=== PATIENT | male | born 1975 | race Caucasian/White ===

== ENCOUNTER 2020-07-11 18:38 | Emergency (ER) | payer SELFPAY ==
--- NOTE | 2020-07-11 18:54 | ECG_ITS ---
Test Reason : CHESTPAIN Blood Pressure : / mmHG Vent. Rate : 081 BPM Atrial Rate : 081 BPM P-R Int : 154 ms QRS Dur : 110 ms QT Int : 370 ms P-R-T Axes : 041 -29 010 degrees QTc Int : 429 ms Normal sinus rhythm with sinus arrhythmia Incomplete right bundle branch block Borderline ECG When compared with ECG of 23-APR-2019 17:43, No significant change was found Referred By: Generic ED Physician Electronically Signed By:SHAUNA PUENTES
[2020-07-11 18:58] VITALS: BP 182/92; PULSE 80; RESP 18; TEMP 37.2; O2SAT 96; BMI 39.3
== END 2020-07-12 00:59 | disposition left against medical advice (07) ==
LOC: HO.ED 07-12 00:25
PROVIDERS: Emergency Provider Emergency Medicine; PCP Internal Medicine
DX: R07.89 Other chest pain (principal)
CPT/HCPCS: 93005; 93010; 99282; 99283

== ENCOUNTER 2021-01-26 11:48 | Outpatient (REF) | payer BC, SELFPAY ==
[2021-01-26 14:19] LABS: Anion Gap 12 (12-20); Blood Urea Nitrogen 22 mg/dL (9-16); Calcium 10.1 mg/dL (8.4-10.2); Carbon Dioxide 30 mmol/L (22-29); Chloride 105 mmol/L (96-108); Cholesterol 218 mg/dL; Estimated Glomerular Filt Rate > 60; Glucose Random 95 mg/dL (60-115); HDL Cholesterol 46 mg/dL; LDL Cholesterol Calculated 122 mg/dl; Potassium 4.8 mmol/L (3.3-5.1); Sodium 142 mmol/L (135-145); Triglycerides 254 mg/dL
== END 2021-01-26 11:49 | disposition home or self-care (01) ==
LOC: HO.LAB 11:48
PROVIDERS: PCP Internal Medicine; Visit Provider Nurse Practitioner Family
DX: I42.8 Other cardiomyopathies (principal); I10 Essential (primary) hypertension; G47.30 Sleep apnea, unspecified; E11.9 Type 2 diabetes mellitus without complications
CPT/HCPCS: 36415; 80048; 80061; 93005

== ENCOUNTER → 2021-10-16 15:27 | Outpatient (BNVA) | payer BC, SELFPAY | PROVIDERS: PCP Internal Medicine; Referring Provider Internal Medicine; Visit Provider Physician Assistant ==

== ENCOUNTER → 2021-10-18 08:08 | Outpatient (BNVA) | payer BC, SELFPAY | PROVIDERS: PCP Internal Medicine; Visit Provider Surgery ==

== ENCOUNTER 2021-11-03 08:42 | Outpatient (REF) | payer BC, OTHER, SELFPAY ==
--- NOTE | ~2021-11-03 | XR_ITS ---
EXAMINATION: XR CHEST CLINICAL INFORMATION: Preprocedure COMPARISON: Previous chest x-ray April 2018 TECHNIQUE: 2 views of the chest were obtained. FINDINGS: No significant abnormality is noted involving the heart, lungs, mediastinum, bony thorax or soft tissues. XR/XR chest 2V IMPRESSION: Unremarkable examination.
--- NOTE | 2021-11-03 08:59 | ECG_ITS ---
Test Reason : preop Blood Pressure : / mmHG Vent. Rate : 074 BPM Atrial Rate : 074 BPM P-R Int : 154 ms QRS Dur : 100 ms QT Int : 390 ms P-R-T Axes : 045 -30 -03 degrees QTc Int : 432 ms Normal sinus rhythm Left axis deviation Incomplete right bundle branch block Abnormal ECG When compared with ECG of 11-JUL-2020 18:52, No significant change was found Referred By: Etelvina Thapa Electronically Signed By:TRAVIS MORAN MD
[2021-11-03 09:19] LABS: MANUAL DIFF FLAG NO
[2021-11-03 09:29] LABS: Basophils Percent Auto 0.4 % (0-2); Eosinophils Absolute Auto 0.1 X10*3/uL (0.0-0.4); Eosinophils Percent Auto 2.4 % (0-4); Hematocrit 44.8 % (42.0-52.0); Hemoglobin 14.5 g/dl (14.0-18.0); Imm Gran Abs Auto 0.01 X10*3/uL (0.00-0.03); Imm Gran Pct Auto 0.2 % (0.0-0.4); Lymphocytes Absolute Auto 1.6 X10*3/uL (1.2-4.9); Lymphocytes Percent Auto 31.7 % (20-40); Mean Corpuscular HGB Conc 32.4 g/dl (31.0-36.0); Mean Corpuscular Hemoglobin 27.7 pg (27.0-33.0); Mean Corpuscular Volume 85.7 fL (80.0-98.0); Mean Platelet Volume 9.5 fL (9.4-12.4); Monocytes Absolute Auto 0.4 X10*3/uL (0.1-1.2); Monocytes Percent Auto 7.7 % (2-11); Neutrophils Absolute Auto 2.9 x10*3/uL (2.0-8.3); Neutrophils Percent Auto 57.6 % (45-73); Platelet Count 236 X10*3/uL (160-400); Red Blood Count 5.23 X10*6/uL (4.60-5.80); Red Cell Distribution Width 13.2 % (11.0-16.0)
[2021-11-03 10:01] LABS: Estimated Average Glucose 128 mg/dL; Hemoglobin A1c % 6.1 %
[2021-11-03 10:23] LABS: Alanine Aminotransferase 96 U/L (0-40); Albumin Level 4.6 g/dL (3.5-5.0); Alkaline Phosphatase 42 U/L (39-117); Anion Gap 11 (12-20); Aspartate Amino Transferase 39 U/L (5-37); Bilirubin Total 1.3 mg/dL (0.0-1.0); Blood Urea Nitrogen 22 mg/dL (9-16); C Reactive Protein 0.56 mg/dL (< or = 0.50); Calcium 10.1 mg/dL (8.4-10.2); Carbon Dioxide 30 mmol/L (22-29); Chloride 104 mmol/L (96-108); Cholesterol 234 mg/dL; Estimated Glomerular Filt Rate > 60; Glucose Random 125 mg/dL (60-115); HDL Cholesterol 40 mg/dL; Iron 85 mcg/dL (45-160); LDL Cholesterol Calculated 165 mg/dl; Percent Iron Saturation 22 % (15-50); Potassium 4.4 mmol/L (3.3-5.1); Sodium 141 mmol/L (135-145); Total Iron Binding Capacity 381 mcg/dL (228-428); Total Protein 8.3 g/dL (6.5-8.0); Triglycerides 148 mg/dL; Unsaturated Iron Binding 296 ug/dL
[2021-11-03 10:46] LABS: Ferritin 268 ng/mL (20-250); Insulin 26 uU/mL (2-29)
[2021-11-03 11:11] LABS: Folate 13.9 ng/mL (> or = 4.0); Vitamin B12 306 pg/mL (200-900)
[2021-11-07 12:37] LABS: Calcium (PTHI) 10.2 mg/dL (8.6-10.3); PTHI 70 pg/mL (14-64)
[2021-11-07 13:01] LABS: Zinc 84 mcg/dL (60-130)
[2021-11-08 12:37] LABS: Vitamin A 57 mcg/dL (38-98)
[2021-11-08 16:51] LABS: Vitamin B1 11 nmol/L (8-30)
== END 2021-11-03 08:43 | disposition home or self-care (01) ==
LOC: HO.LAB 08:42
PROVIDERS: Absent Provider Internal Medicine; PCP Internal Medicine; Visit Provider Physician Assistant
DX: Z01.818 Encounter for other preprocedural examination (principal); E66.01 Morbid (severe) obesity due to excess calories; E11.9 Type 2 diabetes mellitus without complications; I10 Essential (primary) hypertension
CPT/HCPCS: 36415; 71046; 80053; 80061; 82306; 82607; 82728; 82746; 83036; 83525; 83540; 83970; 84425; 84443; 84590; 84630; 85025; 86140; 93005

== ENCOUNTER → 2022-01-24 09:44 | Outpatient (REF) | payer BC, OTHER, SELFPAY ==
--- NOTE | 2022-01-24 09:47 | CA_ITS ---
Transthoracic Echocardiogram Patient (Last, First, Middle): Willie Strong, Gender: Male Date of : 1975 Age: 46 Procedure Date: 01/24/2022 Procedure Type: Transthoracic Echocardiogram Location: OP Height: 182.88 cm Weight: 136.08 kg BSA: 2.53 m2 Heart Rate: bpm BP: 120 / 80 mmHg Core Drill Operator Helper: YR/TO Referring MD: Zoey Sotomayor MECHANICAL DESIGN TECHNICIANHenny Symptoms: I42.8 - Other cardiomyopathies Study Quality: Fair Conclusions: - 1. technically limited study 2. Normal LV systolic function with impaired relaxation filling pattern 3. Limited visualization of cardiac valves with normal cardiac valvular Doppler 4. Normal RV systolic pressure 5. No gross pericardial effusion Findings Left Ventricle Normal left ventricular size, thickness, and systolic function. The visually estimated ejection fraction is between 55-60%. Spectral Doppler is indicative of an impaired relaxation filling pattern. E/E prime ratio is between 8 and 15 consistent with indeterminate filling pressures. Right Ventricle Normal right ventricular cavity size. Atria The left atrium is normal in size. Interatrial shunt cannot be excluded. The right atrium was not well visualized. Aortic Valve The aortic valve was not well visualized. There is no aortic valve stenosis. There is no aortic valve regurgitation. Mitral Valve The mitral valve was not well visualized. There is trace mitral valve regurgitation. There is no mitral valve stenosis. Pulmonic Valve The pulmonic valve was not well visualized. Tricuspid Valve The tricuspid valve was not well visualized. There is trace tricuspid valve regurgitation. The right ventricular systolic pressure is normal. Normal right atrial pressure. There is no evidence of pulmonary hypertension. Great Vessels The aorta was not well visualized. The pulmonary artery was not well visualized. Venous The inferior vena cava is normal in size and collapses greater than 50% with inspiration. Pericardium/Pleural There is no evidence of pericardial effusion. Prior Study Comparison No significant change compared to prior study dated: 05/14/2019. Measurements 2D Linear Measurements IVSd: 1.12 0.6-0.9/0.6-1.0 cm LVIDd: 5.63 3.9-5.3/4.2-5.9 cm LVIDd Index: 2.23 2.4-3.2/2.2-3.1 cm/m2 LVIDs: 3.63 2.0-3.6 cm LVPWd: 1.12 0.7-1.1 cm LA Diam: 5.10 2.7-3.8/3.0-4.0 cm LAIDs Index: 2.02 1.5-2.3 cm/m2 LV Mass: 321.35 67-162/88-224 g LV Mass Index: 127.02 43-95/49-115 g/m2 LVOT Diam: 2.10 3.0+(-)1.3 cm 2D Systolic Function EF 4C: 58.30 >55% EF 2C: 60.10 >55% EF BiP: 60.00 >55% Mitral Valve MV Pk E: 0.69 MV PK A: 1.00 MV Decel Time: 237.00 E/A: 0.70 E'Lateral: 5.77 E'Medial: 6.85 E/E' Med: 10.00 E/E' Lat: 11.90 PHT: 70.00 MVA PHT: 3.14 Decel [place]: 2.89 Aortic Valve AoV Pk Shoaib: 1.68 AoV Mn Shoaib: 1.15 AoV VTI: 0.32 AoV Pk Grad: 11.00 Aov Mn Grad: 6.00 LISA Cont.VTI: 2.19 LVOT LVOT Pk Shoaib: 1.00 LVOT Mn Shoaib: 0.68 LVOT VTI: 0.20 LVOT Pk Grad: 4.00 LVOT Mn Grad: 2.00 LVOT Diam: 2.10 LVOT Area: 3.46 Diastolic Function MV Pk E: 0.69 MV Pk A: 1.00 E/A: 0.70 E'Medial: 6.85 E/E' Med: 10.00 E' Laterial: 5.77 E/E' Lat: 11.90 Right Ventricle TAPSE (mm): 32.10 TVS' Shoaib: 14.90 Tricuspid Valve TR Pk Shoaib: 2.08 TR Pk Grad: 17.00 RA Press: 8.00 RVSP: 25.00 Great Vessels Aorta Sinus of Valsalva: 3.37 2.0-3.[address] [place]: 2.96 1.7-3.4 cm Ao Asc: 3.50 2.1-3.4 cm Ao Arch: 2.80 Updated in Other Vendor System with Status of Final Hector Simon MD electronically signed on 01/24/2022 12:53:08 PM with status of Final
== END ==
LOC: HO.CARD 09:44
PROVIDERS: PCP Internal Medicine; Visit Provider Nurse Practitioner Family
DX: I10 Essential (primary) hypertension (principal); I42.8 Other cardiomyopathies
CPT/HCPCS: 93306

== ENCOUNTER → 2022-01-29 10:42 | Outpatient (BNVA) | payer BC, OTHER, SELFPAY | PROVIDERS: PCP Internal Medicine; Referring Provider Internal Medicine; Visit Provider Internal Medicine Cardiovascular Disease | DX: I42.8 Other cardiomyopathies (principal) | CPT/HCPCS: 93005 ==

== ENCOUNTER 2022-07-08 10:17 | Emergency (ER) | payer OTHER, SELFPAY ==
--- NOTE | ~2022-07-08 | US_ITS ---
EXAMINATION: US VENOUS ULTRASOUND WITH DOPPLER LOWER EXTREMITY, LEFT CLINICAL INFORMATION: Pain COMPARISON: None TECHNIQUE: Ultrasound of the deep veins is performed from the hip to the calf with compression sonography and color and pulse Doppler assessment. Spectral analysis with color-flow imaging is performed. FINDINGS: There is normal venous compression and respiratory variation and augmented flow. The visualized common femoral vein, superficial femoral vein, profunda femoral vein, popliteal vein, and the trifurcation region shows no evidence of deep venous thrombosis. There is no popliteal fossa cyst. US/US venous duplex LE LT IMPRESSION: No DVT demonstrated in the left lower extremity.
[2022-07-08 10:28] VITALS: BP 139/80; PULSE 75; RESP 18; TEMP 36.6; O2SAT 98; BMI 40.6
[2022-07-08 10:54] VITALS: BP 128/79; PULSE 72; RESP 14; TEMP 36.6; O2SAT 98
--- NOTE | 2022-07-08 10:54 | ED_ITS ---
HPI - General Adult General Chief complaint: General Medical Stated complaint: pain in calf Time Seen by Provider: 07/08/22 10:54 History of Present Illness HPI narrative: 46 years old presents today with having pain to the left calf area. Has a history of diabetes history of nonischemic cardiomyopathy. Patient larger in size. No history of blood clots. No history of pulmonary embolism. No travel history. Patient from home. No history of similar symptoms in the past. Patient initially had the calf dense migrated to having some tingling sensation in the hands. Patient denies any difficulty with speech. Denies any difficulty with movement. Ambulates with a normal gait. There is no chest pain or shortness of breath no diaphoresis. Patient has been on the same medications. Related Data Home Medications Medication Instructions Recorded Confirmed atorvastatin 10 mg tablet 10 mg PO DAILY 01/29/22 01/29/22 lisinopril 20 1 tab PO DAILY 01/29/22 01/29/22 mg-hydrochlorothiazide 12.5 mg tablet metoprolol succinate 25 mg 25 mg PO DAILY 01/29/22 01/29/22 tablet,extended release 24 hr Allergies Allergy/AdvReac Type Severity Reaction Status Date / Time shrimp [SHRIMP] Allergy Intermediate ANGIOEDEMA Verified 01/29/22 11:03 Review of Systems Review of Systems: Positive pain to the left calf Yes all other systems are reviewed and are negative PMFSH Past Medical History Attestation statement: The following information was validated with the patient. Medical History Cardiac arrhythmia Diabetes mellitus, type 2 Hypertension Morbid obesity Myocardial infarction Nonischemic cardiomyopathy Sleep apnea Surgical History History of cardiac catheterization Hx of appendectomy Family History Family History Father No problems noted. Mother Diabetes Sister No problems noted. Son No problems noted. Daughter No problems noted. Social History Social History Alcohol intake: current Alcohol intake frequency: holidays/special occasions only Patient Tobacco Use Status: Never used Tobacco Advance Directives: No Advance Directives Information Provided: No Physical Exam ED Vital Signs: Vital Signs - 24 hr 07/08/22 10:28 07/08/22 10:54 07/08/22 12:50 Temperature 97.9 F 97.8 F 97.9 F Pulse Rate 75 72 65 Respiratory Rate 18 14 14 Blood Pressure 139/80 128/79 124/72 Pulse Oximetry 98 98 98 Oxygen Delivery Method Room Air Room Air BMI result Body Mass Index 40.6 Appearance: Alert. Oriented X3. No acute distress. Eyes: Pupils equal, round and reactive to light. ENT: Pharynx normal. Neck: Normal inspection. Neck supple. No lymph nodes noted. No crepitus CVS: Normal heart rate and rhythm. Pulses normal. Normal S1 and S2 Respiratory: No respiratory distress. Breath sounds normal. No Wheezing. No rales Abdomen: Soft and nontender. No rigidity. No distention. good BS x4 Skin: Skin warm and dry. Normal skin color. Normal skin turgor. Extremities: No lower extremity edema. Neurovascular intact to all extremities. No Lacerations. No Rash. There is no calf tenderness elicited on palpation. Calf size equal at 10 cm below the tibial tuberosity. Neuro: Oriented X 3. No motor deficit. No sensory deficit. Moving all extermities. No slurred speech Medical Decision Making MDM Narrative Medical decision making narrative: Doppler of the leg was grossly negative. Electrolytes unremarkable. Patient neurologically intact. Will discharge patient home. EKG unchanged from previous. Patient is in stable condition. Lab Data Lab results reviewed: Yes I reviewed the patient's lab results. Result diagrams: 07/08/22 11:24 07/08/22 11:24 Labs: Lab Results 07/08/22 07/08/22 07/08/22 Range/Units 11:24 11:24 11:24 WBC 5.1 (4.8-10.8) X10*3/uL RBC 5.07 (4.60-5.80) X10*6/uL Hgb 13.9 L (14.0-18.0) g/dl Hct 43.0 (42.0-52.0) % MCV 84.8 (80.0-98.0) fL MCH 27.4 (27.0-33.0) pg MCHC 32.3 (31.0-36.0) g/dl RDW 13.2 (11.0-16.0) % Plt Count 196 (160-400) X10*3/uL MPV 9.1 L (9.4-12.4) fL Immature Gran % (Auto) 0.2 (0.0-0.4) % Neut % (Auto) 61.8 (45-73) % Lymph % (Auto) 28.4 (20-40) % [place] % (Auto) 6.5 (2-11) % Eos % (Auto) 2.7 (0-4) % Baso % (Auto) 0.4 (0-2) % Lymph # (Auto) 1.5 (1.2-4.9) X10*3/uL [place] # (Auto) 0.3 (0.1-1.2) X10*3/uL Eos # (Auto) 0.1 (0.0-0.4) X10*3/uL Baso # (Auto) 0.0 (0.0-0.2) X10*3/uL Abs Immat Gran (auto) 0.01 (0.00-0.03) X10*3/uL Absolute Neuts (auto) 3.2 (2.0-8.3) x10*3/uL Absolute Nucleated RBC 0.000 (0.0-0.012) X10*3/uL Nucleated RBC % (auto) 0.0 (0.0-0.2) /100WBC Sodium 140 (135-145) mmol/L Potassium 4.4 (3.3-5.1) mmol/L Chloride 100 (96-108) mmol/L Carbon Dioxide 30 H (22-29) mmol/L Anion Gap 14 (12-20) BUN 19 H (9-16) mg/dL Creatinine 1.03 (0.5-1.4) mg/dL Estim Creat Clear Calc 128.0 Estimated GFR > 60 Random Glucose 138 H (60-115) mg/dL Calcium 9.7 (8.4-10.2) mg/dL Magnesium 2.1 (1.6-2.6) mg/dL Troponin I High Sens < 3.5 (<3.5-35.0) ng/L ECG Data Attestation: I personally reviewed and interpreted this ECG as follows: Prior ECG tracings: available for review Discharge Plan Discharge Clinical Impression: Cramp in lower leg Patient Disposition: Home, Self-Care Instructions: Leg Cramps (ED) Prescriptions: No Action lisinopril-hydrochlorothiazide 20-12.5 mg tablet 1 tab PO DAILY metoprolol succinate 25 mg tablet extended release 24 hr 25 mg PO DAILY atorvastatin 10 mg tablet 10 mg PO DAILY Referrals: Cedrick Linton MD [Primary Care Provider] -
--- NOTE | 2022-07-08 10:55 | ECG_ITS ---
Test Reason : WEAKNESS Blood Pressure : / mmHG Vent. Rate : 071 BPM Atrial Rate : 071 BPM P-R Int : 174 ms QRS Dur : 112 ms QT Int : 384 ms P-R-T Axes : 048 -33 -04 degrees QTc Int : 417 ms Normal sinus rhythm Left axis deviation Incomplete right bundle branch block Abnormal ECG When compared with ECG of 03-NOV-2021 09:01, No significant change was found Referred By: Melani Burch Electronically Signed By:SHAUNA PUENTES
--- NOTE | 2022-07-08 11:15 | PC.NURSE ---
pt a&o x4, c/o left calf pain and feeling zonked out . Neuros intact, RYAN strength noted to all four extremities, skin PWD. Left calm without redness, swelling or warmth
[2022-07-08 11:30] LABS: MANUAL DIFF FLAG NO
[2022-07-08 11:31] LABS: Basophils Percent Auto 0.4 % (0-2); Eosinophils Absolute Auto 0.1 X10*3/uL (0.0-0.4); Eosinophils Percent Auto 2.7 % (0-4); Hemoglobin 13.9 g/dl (14.0-18.0); Imm Gran Abs Auto 0.01 X10*3/uL (0.00-0.03); Imm Gran Pct Auto 0.2 % (0.0-0.4); Lymphocytes Absolute Auto 1.5 X10*3/uL (1.2-4.9); Lymphocytes Percent Auto 28.4 % (20-40); Mean Corpuscular HGB Conc 32.3 g/dl (31.0-36.0); Mean Corpuscular Hemoglobin 27.4 pg (27.0-33.0); Mean Corpuscular Volume 84.8 fL (80.0-98.0); Mean Platelet Volume 9.1 fL (9.4-12.4); Monocytes Absolute Auto 0.3 X10*3/uL (0.1-1.2); Monocytes Percent Auto 6.5 % (2-11); Neutrophils Absolute Auto 3.2 x10*3/uL (2.0-8.3); Neutrophils Percent Auto 61.8 % (45-73); Platelet Count 196 X10*3/uL (160-400); Red Blood Count 5.07 X10*6/uL (4.60-5.80); Red Cell Distribution Width 13.2 % (11.0-16.0); White Blood Count 5.1 X10*3/uL (4.8-10.8)
[2022-07-08 11:46] LABS: Anion Gap 14 (12-20); Blood Urea Nitrogen 19 mg/dL (9-16); Calcium 9.7 mg/dL (8.4-10.2); Carbon Dioxide 30 mmol/L (22-29); Chloride 100 mmol/L (96-108); Estimated Glomerular Filt Rate > 60; Glucose Random 138 mg/dL (60-115); Magnesium 2.1 mg/dL (1.6-2.6); Potassium 4.4 mmol/L (3.3-5.1); Sodium 140 mmol/L (135-145)
[2022-07-08 11:53] LABS: Troponin-I High Sensitivity < 3.5 ng/L (<3.5-35.0)
[2022-07-08 12:50] VITALS: BP 124/72; PULSE 65; RESP 14; TEMP 36.6; O2SAT 98
[2022-07-11 16:36] LABS: Calcium, Ionized 4.9 mg/dL (4.8-5.6)
== END 2022-07-08 13:16 | disposition home or self-care (01) ==
PROVIDERS: Emergency Provider Emergency Medicine Emergency Medical Services; PCP Internal Medicine
DX: R25.2 Cramp and spasm (principal); M79.662 Pain in left lower leg; R60.0 Localized edema; Z79.899 Other long term (current) drug therapy
CPT/HCPCS: 36415; 80048; 82330; 83735; 84484; 85025; 93005; 93971; 99284

== ENCOUNTER → 2023-01-31 10:33 | Outpatient (BNVA) | payer BC, SELFPAY | PROVIDERS: PCP Internal Medicine; Referring Provider Internal Medicine; Visit Provider Internal Medicine Cardiovascular Disease | DX: I42.8 Other cardiomyopathies (principal); I10 Essential (primary) hypertension | CPT/HCPCS: 93005 ==

== ENCOUNTER 2024-02-04 10:58 | Outpatient (AMB) | payer MEDICAID, SELFPAY ==
--- NOTE | 2024-02-04 11:02 | A.OFFVIS_ITS ---
Vital Signs 02/04/24 11:03 Height 6 ft Weight 308 lb 10.354 oz BMI 41.9 BP 128/80 Blood Pressure Location Lt brachial Position Sitting Pulse 78 Intake Visit Reasons: 1 year follow-up with ekg Intake Note: 1 year follow-up with ekg feeling good did go to [facility] 2 months ago dx TIA Functional Manager Required: No Allergies shrimp [SHRIMP] Allergy (Intermediate, Verified 01/31/23 10:56) ANGIOEDEMA Medication List - Last Reconciled 02/04/24 by Hector Simon MD atorvastatin 40 mg PO QAM lisinopril-hydrochlorothiazide 20-12.5 mg 1 tab PO DAILY metoprolol succinate ER 25 mg PO DAILY HPI Comments Details: Willie comes for follow-up. Recently about couple months ago he was at [facility] because he had developed left-sided facial numbness along with left arm numbness. He subsequently had extensive workup at [facility], do not have the copy of the records. He said he had extensive MRIs, CT scan including echocardiogram. Everything as per him was reported as normal. He was told that he had TIA. Subsequently had couple more episodes. He comes here for follow- up. He has currently not on aspirin therapy for unclear reasons. He is taking all his medications. He says blood pressures been well optimized. His sugars have been also well controlled. He is since the diagnose been eating better and lost about 30 lb. He said he feels more energy. He is using his CPAP. Denies any lightheadedness, syncope. [facility] Medical History Morbid obesity Nonischemic cardiomyopathy Diabetes mellitus, type 2 Sleep apnea Cardiac arrhythmia Myocardial infarction Hypertension Surgical History History of cardiac catheterization Hx of appendectomy Family History Father No problems noted. Mother Diabetes Sister No problems noted. Son No problems noted. Daughter No problems noted. Social History Alcohol intake: current Alcohol intake frequency: holidays/special occasions only Patient Tobacco Use Status: Never used Tobacco Review of Systems Const Denies chills, Denies fatigue, Denies fever(s), Denies frequent falls, Denies weakness, Denies weight gain and Denies weight loss ENT Denies dizziness Card Denies chest pain, Denies leg edema, Denies lightheadedness, Denies palpitations, Denies dyspnea, Denies dyspnea on exertion, Denies orthopnea and Denies other (loss of consciousness) Resp Denies cough, Denies dyspnea and Denies dyspnea on exertion GI Denies hematochezia and Denies change in stool character Musc Denies abnormal gait, Denies muscle weakness, Denies numbness, Denies radiating pain into limb and Denies tingling Neuro Denies abnormal gait, Denies dizziness, Denies frequent falls, Denies numbness, Denies tingling and Denies weakness Endo Denies fatigue and Denies palpitations Physical Exam Vital Signs: Last Vital Signs Pulse 78 02/04/24 11:03 BP 128/80 02/04/24 11:03 BMI result Body Mass Index 41.9 Const General: cooperative, comfortable and no acute distress Orientation/consciousness: patient oriented x3 Neck Neck: Yes normal visual inspection and Yes no JVD Carotids: normal carotid upstroke Resp Effort & Inspection: normal respiratory effort Auscultation: clear to auscultation bilaterally, no crackles, no rales, no rhonchi and no wheezes Cardio Jugular venous distension: no JVD Rate: regular rate Rhythm: regular rhythm Heart sounds: S1 normal heart sound present, S2 normal heart sound present, no gallops, no murmurs and no rubs Peripheral pulses: Peripheral pulses 2+ throughout GI Inspection: Yes normal to inspection Neuro General: patient oriented x3 Extrem General: Yes normal to inspection, No no pedal edema and No calf tenderness Office Procedures EKG Details: EKG shows normal sinus rhythm with left axis deviation with incomplete right bundle-branch block at 78 beats per minute [id number], Complete Assessment & Plan Assessment & Plan (1) TIA (transient ischemic attack): Code(s): G45.9 - Transient cerebral ischemic attack, unspecified Plan: Recent symptoms suggestive of TIA was diagnose with TIA. There were no findings of embolic CVA on the imaging as per him. I would like to look at although results and make sure he is any vascular disease. He should at least be on aspirin therapy. He is at risk for atrial fibrillation. Will suggest a event monitor to evaluate for the same. Continue aggressive risk factor modification high-intensity statin therapy. Target goal LDL less than 70 mg/dL. He is encouraged to continue to participate in heart healthy lifestyle with aggressive blood pressure control, avoidance of diabetes continue rate control. He is encouraged to continue to participate in physical activity. (2) Nonischemic cardiomyopathy: Code(s): I42.8 - Other cardiomyopathies Category: Medical Plan: Prior history of nonischemic cardiomyopathy. Last echocardiogram here had shown normal LV ejection fraction. He had a recent echocardiogram at [facility]. Will follow-up on that. Continue neurohormonal modulation with lisinopril and metoprolol which has helped. Continue CPAP therapy. Continue participate in physical activity and weight loss program. Goal blood pressure less than 130/84. Will follow up in the clinic in 1 year's time, sooner p.r.n.. Thank you for allowing me to partake in his care Orders: Orders ECG 30 day event monitor Today Coding Level of Care Code Est Pt Level 4 (01102) Diagnoses TIA (transient ischemic attack) G45.9 Nonischemic cardiomyopathy I42.8 CPT Codes EKG - CPT: 54531-[id number], Complete ([id number])
[2024-02-04 11:03] VITALS: BP 128/80; PULSE 78; BMI 41.9
== END 2024-02-04 11:37 | disposition home or self-care (01) ==
PROVIDERS: PCP Internal Medicine; Referring Provider Internal Medicine; Visit Provider Internal Medicine Cardiovascular Disease
DX: G45.9 Transient cerebral ischemic attack, unspecified (principal); I42.8 Other cardiomyopathies
CPT/HCPCS: 93010; 99214

== ENCOUNTER → 2024-02-04 10:58 | Outpatient (BNVA) | payer MEDICAID, SELFPAY | PROVIDERS: PCP Internal Medicine; Visit Provider Internal Medicine Cardiovascular Disease | DX: M71.322 Other bursal cyst, left elbow (principal); I42.8 Other cardiomyopathies; Z86.73 Personal history of transient ischemic attack (TIA), and cerebral infarction without residual deficits; Z79.899 Other long term (current) drug therapy | CPT/HCPCS: 93005; 99202; 99212 ==

== ENCOUNTER 2024-02-04 13:33 | Outpatient (AMB) | payer MEDICAID, SELFPAY ==
--- NOTE | 2024-02-04 13:37 | A.OFFVIS_ITS ---
Intake Visit Reasons: Subcutaneous nodule Intake Note: Patient is seen in office for evaluation and treatment of subcutaneous nodule. Pt c/o: lump above the elbow for the past 2 yrs, painful, denies increase/decrease, redness or discharge Machine Lead Burner Required: No Accompanied by: Self / Same As Patient Allergies shrimp [SHRIMP] Allergy (Intermediate, Verified 02/04/24 13:38) ANGIOEDEMA Medication List - Last Reconciled 02/04/24 by Len Vargas MD atorvastatin 40 mg PO QAM lisinopril-hydrochlorothiazide 20-12.5 mg 1 tab PO DAILY metoprolol succinate ER 25 mg PO DAILY HPI Comments Details: 48-year-old male patient presenting for palpable mass in the left elbow. He is uncertain how long this has been present but notes increased pain associated with using the left arm. The lump is noted to move around when palpated. He denies a history of trauma or other injury to the left arm. He denies skin redness or discharge. [facility] Medical History Morbid obesity Nonischemic cardiomyopathy Diabetes mellitus, type 2 Sleep apnea Cardiac arrhythmia Myocardial infarction Hypertension Surgical History History of cardiac catheterization Hx of appendectomy Family History Father No problems noted. Mother Diabetes Sister No problems noted. Son No problems noted. Daughter No problems noted. Social History Alcohol intake: current Alcohol intake frequency: holidays/special occasions only Patient Tobacco Use Status: Never used Tobacco Review of Systems Const All systems reviewed & are unremarkable except as noted in HPI and below Denies chills, Denies fever(s), Denies headache(s), Denies poor appetite and Denies weakness ENT Denies headache(s) Card Denies chest pain, Denies irregular heart rhythm, Denies palpitations and Denies dyspnea Resp Denies cough, Denies excessive phlegm production and Denies dyspnea GI Denies abdominal pain, Denies bloating, Denies change in bowel habits, Denies constipation, Denies heartburn, Denies diarrhea, Denies nausea and Denies vomiting Denies difficulty urinating and Denies urinary frequency Musc Denies back pain, Denies muscle weakness and Denies numbness Skin/Breast Denies changing lesions and Denies unusual bruising Neuro Denies headache(s), Denies numbness, Denies paresthesias and Denies weakness Psych Denies anxiety and Denies depression Endo Denies palpitations [place]/Lymph Denies lymphadenopathy Physical Exam Const General: cooperative and no acute distress Nutritional Appearance: well nourished Orientation/consciousness: patient oriented x3 Limitations: no limitations HEENT Head: Yes normocephalic and Yes atraumatic Ears: hearing grossly normal bilaterally Resp Effort & Inspection: normal respiratory effort, no audible wheezes, no cough and no respiratory distress Cardio Jugular venous distension: no JVD GI Inspection: Yes normal to inspection Skin Other: Warm, dry, no rash Neuro General: patient oriented x3 Extrem Other: Left elbow with a palpable subcutaneous nodule medially which seems to move with motion of the elbow. General: Yes no clubbing, cyanosis or edema Elbow/forearm/wrist images: 2 1. Site of palpable nodule in posterior medial left elbow. Findings consistent with possible synovial cyst within the subcutaneous tissue. Assessment & Plan Assessment & Plan (1) Synovial cyst of elbow: Code(s): M71.329 - Other bursal cyst, unspecified elbow Category: Medical Plan Patient appears to have a deep mobile cyst within the left elbow suggestive of a synovial cyst. I recommended further workup with an ultrasound. If this is need a synovial cyst referral to orthopedics will be recommended. On the other hand if this is a solitary cyst within the subcutaneous tissue, arrangements will be made for excision. The patient expressed understanding and agrees with the plan. Orders: Orders 2 US extremity nonvascular merino Today M71.329 - Other bursal cyst, unspecified elbow Coding Level of Care Code New Pt Level 4 (00384) Diagnoses Synovial cyst of elbow M71.329
== END 2024-02-04 13:42 | disposition home or self-care (01) ==
PROVIDERS: PCP Internal Medicine; Referring Provider Internal Medicine; Visit Provider Surgery
DX: M71.329 Other bursal cyst, unspecified elbow (principal)
CPT/HCPCS: 99204

== ENCOUNTER 2024-02-20 13:03 | Outpatient (REF) | payer MEDICAID, SELFPAY ==
--- NOTE | ~2024-02-20 | US_ITS ---
EXAMINATION: ULTRASOUND LEFT ARM CLINICAL INFORMATION: Palpable mass left medial elbow. COMPARISON: None available. TECHNIQUE: High-frequency linear ultrasound transducer was used to examine the area of clinical concern. FINDINGS: No abnormality is seen. No mass, joint effusion, fluid collection or shadowing calcifications are seen. US/US extremity nonvascular merino IMPRESSION: No abnormality is seen.
== END 2024-02-20 13:04 | disposition home or self-care (01) ==
LOC: HO.US 13:03
PROVIDERS: PCP Internal Medicine; Visit Provider Surgery
DX: M71.329 Other bursal cyst, unspecified elbow (principal)
CPT/HCPCS: 76882

== ENCOUNTER → 2024-02-28 10:46 | Outpatient (REF) | payer MEDICAID, SELFPAY ==
--- NOTE | 2024-02-28 10:49 | HM_ITS ---
Cardiac event monitor Indication: TIA Technique: Patient was hooked up to cardiac event monitor on 02/28/2024 for total period of 30 days. The wear time was about 21.7 days consistent with compliance of 72%. Findings: Baseline was normal sinus rhythm with minimum heart rate of 67 beats per minute and maximum heart rate of 138 beats per minute. There were no significant pauses noted. The no significant episodes of atrial fibrillation noted. One episode of nonsustained VT noted, lasting 6 beats. The EKG tracings were overall of low quality due to low voltage with occasional episodes of artifacts. No patient reported events. Conclusion: 1. Baseline was normal sinus rhythm with no pauses 2. No episodes of atrial fibrillation 3. One episode of nonsustained VT at 6 beats 4. No patient reported events MTDD
== END ==
LOC: HO.CARD 10:46
PROVIDERS: PCP Internal Medicine; Visit Provider Internal Medicine Cardiovascular Disease
DX: G45.9 Transient cerebral ischemic attack, unspecified (principal); I42.8 Other cardiomyopathies
CPT/HCPCS: 93270

== ENCOUNTER → 2024-02-28 10:49 | Outpatient (BNV) | payer MEDICAID, SELFPAY | PROVIDERS: PCP Internal Medicine; Visit Provider Internal Medicine Cardiovascular Disease | DX: R00.0 Tachycardia, unspecified (principal) | CPT/HCPCS: 93272 ==

== ENCOUNTER 2024-07-02 10:15 | Outpatient (REF) | payer MEDICAID, SELFPAY ==
[2024-07-02 14:41] LABS: Cholesterol 132 mg/dL (<200); HDL Cholesterol 43 mg/dL (>40); LDL Cholesterol Calculated 67 mg/dL (<100); Triglycerides 111 mg/dL (<150)
[2024-07-02 20:50] LABS: Creatinine Urine 202.78 mg/dL; Microalbum/Creatinine Ratio Ur 3.9 ug/mg cr (<30)
[2024-07-03 04:13] LABS: ~HepC Num1 0.12 S/CO (0.00-0.79); ~Hepatitis C Antibody Nonreactive (Nonreactive)
== END 2024-07-02 10:16 | disposition home or self-care (01) ==
LOC: HO.CHCLDS 10:15
PROVIDERS: Visit Provider Internal Medicine
DX: E11.65 Type 2 diabetes mellitus with hyperglycemia (principal)
CPT/HCPCS: 36415; 80061; 82043; 82570; 86803

== ENCOUNTER 2025-02-02 09:44 | Outpatient (AMB) | payer MEDICAID, SELFPAY ==
--- NOTE | 2025-02-02 10:15 | A.OFFVIS_ITS ---
Vital Signs 02/02/25 10:16 Height 6 ft Weight 288 lb 12.889 oz BMI 39.2 BP 130/76 Blood Pressure Location Lt brachial Position Sitting Pulse 70 Intake Visit Reasons: 1 yr f/up Intake Note: 1 year follow-up with ekg feeling good Assistant Merchandise Manager Required: No Allergies shrimp [SHRIMP] Allergy (Intermediate, Verified 02/04/24 13:38) ANGIOEDEMA Medication List - Last Reconciled 02/02/25 by Hector Simon MD atorvastatin 40 mg PO QAM lisinopril-hydrochlorothiazide 20-12.5 mg 1 tab PO DAILY metoprolol succinate ER 25 mg PO DAILY tirzepatide (Mounjaro) 2.5 mg subcut QWEEK HPI Comments Details: Willie comes for cardiology follow-up. He has been doing very well from cardiac perspective. He has been trying to lose weight with GLP to antagonist has been doing well although he was had some insurance issues. Recently started on Mounjaro. He has not started any cardiac symptoms. Denies any worsening shortness of breath, orthopnea, PND. No exertional chest pain. He says since treating his hyperlipidemia his symptoms he was getting last year have improved. He denies any lightheadedness, syncope. He uses his CPAP regularly. [facility] Medical History Morbid obesity Nonischemic cardiomyopathy Diabetes mellitus, type 2 Sleep apnea Cardiac arrhythmia Myocardial infarction Hypertension Surgical History History of cardiac catheterization Hx of appendectomy Family History Father No problems noted. Mother Diabetes Sister No problems noted. Son No problems noted. Daughter No problems noted. Social History Alcohol intake: current Alcohol intake frequency: holidays/special occasions only Patient Tobacco Use Status: Never used Tobacco Review of Systems Const Denies chills, Denies fatigue, Denies fever(s), Denies frequent falls, Denies weakness, Denies weight gain and Denies weight loss ENT Denies dizziness Card Denies chest pain, Denies leg edema, Denies lightheadedness, Denies palpitations, Denies dyspnea, Denies dyspnea on exertion, Denies orthopnea and Denies other (loss of consciousness) Resp Denies cough, Denies dyspnea and Denies dyspnea on exertion GI Denies hematochezia and Denies change in stool character Musc Denies abnormal gait, Denies muscle weakness, Denies numbness, Denies radiating pain into limb and Denies tingling Neuro Denies abnormal gait, Denies dizziness, Denies frequent falls, Denies numbness, Denies tingling and Denies weakness Endo Denies fatigue and Denies palpitations Physical Exam Vital Signs: Last Vital Signs Pulse 70 02/02/25 10:16 BP 130/76 02/02/25 10:16 BMI result Body Mass Index 39.2 Const General: cooperative, comfortable and no acute distress Orientation/consciousness: patient oriented x3 Neck Neck: Yes normal visual inspection and Yes no JVD Carotids: normal carotid upstroke Resp Effort & Inspection: normal respiratory effort Auscultation: clear to auscultation bilaterally, no crackles, no rales, no rhonchi and no wheezes Cardio Jugular venous distension: no JVD Rate: regular rate Rhythm: regular rhythm Heart sounds: S1 normal heart sound present, S2 normal heart sound present, no gallops, no murmurs and no rubs Peripheral pulses: Peripheral pulses 2+ throughout GI Inspection: Yes normal to inspection Neuro General: patient oriented x3 Extrem General: Yes normal to inspection, No no pedal edema and No calf tenderness Office Procedures EKG Details: EKG shows normal sinus rhythm with incomplete right bundle-branch block at 70 beats per minute otherwise no significant abnormality. [id number], Complete Assessment & Plan Assessment & Plan (1) Nonischemic cardiomyopathy: Code(s): I42.8 - Other cardiomyopathies Category: Medical Plan: Nonischemic cardiomyopathy in this middle-aged man without any cardiac symptoms. Currently on neurohormonal modulation with lisinopril and metoprolol. He has done well with last echocardiogram done few years ago showing normalized LV ejection fraction. Advised to continue metoprolol and lisinopril for blood pressure control as well as neurohormonal modulation. Blood pressure is currently well optimized. He is encouraged to continue to participate in aggressive weight loss program which will help his overall cardiometabolic risk and development of heart failure syndrome. At this point time will repeat echocardiogram to assess for LV systolic and diastolic function to evaluate for LVH. Continued aggressive management diabetes as well as lipids as per your office should be pursued. Goal hemoglobin A1c less than 7% goal LDL less than 70 mg/dL. He is doing well from cardiac perspective. Will follow up in the clinic in 1 year's time, sooner p.r.n.. Thank you for allowing me to partake in his care Orders: Orders CA echo transthoracic complete Today I42.8 - Other cardiomyopathies Coding Level of Care Code Est Pt Level 4 (73173) Complex EM visit Add On G2211 Diagnoses Nonischemic cardiomyopathy I42.8 CPT Codes EKG - CPT: 09175-[id number], Complete ([id number])
[2025-02-02 10:16] VITALS: BP 130/76; PULSE 70; BMI 39.2
--- OUTSIDE RECORDS SUMMARY | 2025-02-02 10:52 | XMS_ITS | Clinical Summary ---
[facility] Address [address] [place] [address] Care Team Providers Care Maintenance Shop Clerk Name Role Phone Cedrick Linton MD Primary Care Provider [phone] Social History Tobacco Use Types Packs/Day Years Used Date Smoking Tobacco: Former Cigarettes Q uit: 02/09/2010 Smokeless Tobacco: Never Alcohol Use Standard Drinks/Week Comments Yes 0 (1 standard drink = 0.6 oz pur e alcohol) Sex and Gender Information Value Date Recorded Sex Assigned at Not on file Legal Sex Male 12:52 AM EST Gender Identity Not on file Sexual Orientation Not on file Obstetrics History Last Filed Vital Signs Vital Sign Reading Time Taken Comments Blood Pressure 124/70 10/04/2023 12:17 PM EST Si tting L Arm Pulse 65 10/04/2023 12:17 PM EST Temperature - - Respiratory Rate - - Oxygen Saturation - - Inhaled Oxygen Concentration - - Weight 147 kg (323 lb) 10/04/2023 12:17 PM EST Height 182.9 cm (6') 10/04/2023 12:17 PM EST Body Mass Index 43.81 10/04/2023 12:17 PM EST Plan of Treatment Health Maintenance Due Date Last Done Comments DTaP,Tdap,and Td Vaccines (1 - Tdap) 1994 Hepatitis B Vaccines (1 of 3 - 19+ 3-dose series) 1994 Pneumococcal Vaccine: Pediat rics (0 to 5 Years) and At-Risk Patients (6 to 64 Years) (1 of 2 - PCV) 1994 Cholesterol Screening (Lipid Panel) 11/05/2023 Colorectal Cancer Screening: Colonoscopy 11/05/2023 Depression Screening 11/05/2023 HIV Screening 11/05/2023 Hepatitis C Screening 11/05/2023 Hypertension/CHF/CAD Annual BMP Blood Test 11/05/2023 Social Influencers of Health Screening 11/05/2023 COVID-19 Vaccine (2023-2 5 season) 2024 Influenza Vaccine (Season Ended) 2025 HIB Vaccines Aged Out No longer eligi ble based on patient's age to complete this topic HPV Vaccines Aged Out No longer eligi ble based on patient's age to complete this topic Hepatitis A Vaccines Aged Out No long er eligible based on patient's age to complete this topic IPV Vaccines Aged Out No longer eligi ble based on patient's age to complete this topic MMR Vaccines Aged Out No longer eligi ble based on patient's age to complete this topic Meningococcal ACWY Vaccine Aged Out N o longer eligible based on patient's age to complete this topic Meningococcal B Vaccine Aged Out No l onger eligible based on patient's age to complete this topic RSV Immunization Patients Un patricia 20 months Aged Out No longer eligible b ased on patient's age to complete this topic Varicella Vaccines Aged Out No longer eligible based on patient's age to complete this topic Advance Directives Documents on File Type Date Recorded Patient Driver/Guide Expl anation Health Care Decision (hx) 09/03/2023 AD LITTLE DIRECTIVE Health Care Decision (hx) 09/03/2023 AD LITTLE DIRECTIVE Health Care Decision (hx) 09/03/2023 AD LITTLE DIRECTIVE Health Care Decision (hx) 07/23/2017 AD LITTLE DIRECTIVE Health Care Decision (hx) 07/23/2017 AD LITTLE DIRECTIVE Health Care Decision (hx) 07/23/2017 AD LITTLE DIRECTIVE Health Care Decision (hx) 07/23/2017 AD LITTLE DIRECTIVE Health Care Decision (hx) 07/23/2017 AD LITTLE DIRECTIVE Care Teams Maintenance Shop Clerk Relationship Specialty Start Date End Date Cedrick Linton MD [address] [place] [address] PCP - General Internal Medicine 08/07/16
--- OUTSIDE RECORDS SUMMARY | 2025-02-02 10:52 | XMS_ITS | Encounter Summary ---
Author Organization [employer] Address [address] [facility] 7 [place] [address] Care Team Providers Care Depalletizer Operator Name Role Phone Cedrick Linton MD Primary Care Provider Encounter Details Date Type Department Care Team ([facility] st Contact Info) Description 08/17/2024 Orders Only [facility] MED & PEDS [address] [place], [place] [phone] Cedrick Linton MD [address] [place] [address] Social History Tobacco Use Types Packs/Day Years Used Date Smoking Tobacco: Former Cigarettes 1 15 2013 Smokeless Tobacco: Never Alcohol Use Standard Drinks/Week Comments Not Currently 0 (1 standard drink = 0.6 oz pur e alcohol) Housing Stability Answer Date Recorded What is your housing situation today? I have carmen green 12/27/[address] you li ve. Do you have problems with any of the following? None of the above 12/27/2023 Food Insecurity Answer Date Recorded Within the past 12 months, y ou worried that your food would run out before you got money to buy more: Never True 12/27/2023 Within the past 12 months,th e food you bought just didn't last and you didn't have enough money to get more: Never True Transportation Answer Date Recorded In the past 12 months, has l ack of transportation kept you from medical appts, meetings, work or from getting things needed for daily living? No 12/27/2023 Utilities Answer Date Recorded In the past 12 months, has t he electric, gas, oil or water company threatened to shut off services in your home? No 12/27/2023 Sex and Gender Information Value Date Recorded Sex Assigned at Male 08/06/2022 10:22 AM EDT Legal Sex Male 10:22 AM EDT Gender Identity Male 08/06/2022 10:22 AM EDT Sexual Orientation Straight 08/06/2022 10 :22 AM EDT documented as of this encounter Plan of Treatment Upcoming Encounters Date Type Department Care Team (Late st Contact Info) Description 04/06/2025 1:45 PM EDT Office Visit [facility] MED & PEDS [address] [place] [address] Cedrick Linton MD [address] [place] [address] documented as of this encounter Visit Diagnoses Not on filedocumented in this encounter Care Teams Depalletizer Operator Relationship Specialty Start Date End Date Cedrick Linton MD [address] [place] [address] PCP - General Internal Medicine 06/06/16 documented as of this encounter
--- OUTSIDE RECORDS SUMMARY | 2025-02-02 10:52 | XMS_ITS | Encounter Summary ---
Author Organization [employer] Address [address] [place] [address] 7 [place] [address] Care Team Providers Care Truck Cleaner Name Role Phone Cedrick Linton MD Primary Care Provider Reason for Visit * Reason Comments Med Refill Encounter Details Date Type Department Care Team ([facility] Contact Info) Description 06/24/2024 Refill [facility] CHC MED & PEDS [address] [place] [address] Cedrick Linton MD [address] [place] [address] Severe obesity (BMI >= 40) (CMS/HCC) Social History Tobacco Use Types Packs/Day Years Used Date Smoking Tobacco: Former Cigarettes 1 2013 Smokeless Tobacco: Never Alcohol Use Standard [...] Description 04/06/2025 1:45 PM EDT Office Visit [facility] MED & PEDS [address] [place] [address] Cedrick Linton MD [address] [place] [address] documented as of this encounter Visit Diagnoses Diagnosis Severe obesity (BMI >= 40) (CMS/HCC) documented in this encounter Care Teams Truck Cleaner Relationship Specialty Start Date End Date Cedrick Linton MD [address] [place] [address] PCP - General Internal Medicine 06/06/16 documented as of this encounter
--- OUTSIDE RECORDS SUMMARY | 2025-02-02 10:52 | XMS_ITS | Encounter Summary ---
Author Organization [facility] Address [address] [place] [address] Care Team Providers Care Sustainability Purchasing Agent Name Role Phone Cedrick Linton MD Primary Care Provider [phone] Encounter Details Date Type Department Care Team (Late st Contact Info) Description 11/01/2022 Orders Only [facility] MED & PEDS [address] [place] [address] Mirian Astorga LPN Social History Tobacco Use Types Packs/Day Years Used Date Smoking Tobacco: Never Assessed Sex and Gender Information Value Date Recorded Sex Assigned at Male 08/06/2022 10:22 AM EDT Legal Sex Male 10:22 AM EDT Gender Identity Male 08/06/2022 10:22 AM EDT Sexual Orientation Straight 08/06/2022 10 :22 AM EDT documented as of this encounter Plan of Treatment Upcoming Encounters Date Type Department Care Team (Late st Contact Info) Description 04/06/2025 1:45 PM EDT Office Visit [facility] MED & PEDS [address] [place] [address] Cedrick Linton MD [address] [place] [address] documented as of this encounter Visit Diagnoses Not on filedocumented in this encounter Care Teams Sustainability Purchasing Agent Relationship Specialty Start Date End Date Cedrick Linton MD [address] [place] [address] PCP - General Internal Medicine 06/06/16 documented as of this encounter
--- OUTSIDE RECORDS SUMMARY | 2025-02-02 10:52 | XMS_ITS | Encounter Summary ---
Author Organization [employer] Address [address] [facility] [address] [place] [address] Care Team Providers Care Yarn Skeins Examiner Name Role Phone Cedrick Linton MD Primary Care Provider Encounter Details Date Type Department Care Team ([facility] st Contact Info) Description 05/18/2024 Orders Only [facility] CHC MED & PEDS [address] [place], [place] [phone] Cedrick Linton MD [address] [place] [address] Type 2 diabetes mellitus with hyperglycemia, without long-term current use of insulin (CMS/HCC) (Primary Dx); Severe obesity (BMI >= 40) (CMS/HCC) Social [...] Description 04/06/2025 1:45 PM EDT Office Visit [facility] MED & PEDS [address] [place] [address] Cedrick Linton MD [address] [place] [address] documented as of this encounter Visit Diagnoses Diagnosis Type 2 diabetes mellitus with hyperglycemia, without long-term current use of insulin (CMS/HCC)- Primary Severe obesity (BMI >= 40) (CMS/HCC) documented in this encounter Care Teams Yarn Skeins Examiner Relationship Specialty Start Date End Date Cderick Linton MD [address] [place] [address] PCP - General Internal Medicine 06/06/16 documented as of this encounter
--- OUTSIDE RECORDS SUMMARY | 2025-02-02 10:52 | XMS_ITS | Clinical Summary ---
Author Organization [employer] Address [address] [place] [address] Care Team Providers Care Clay Shop Supervisor Name Role Phone Cedrick Linton MD Primary Care Provider Allergies No known active allergies Medications Aspirin Low Dose 81 MG EC tablet Take 1 tablet (81 mg) by mouth in the morning. 30 tablet 11 4 Active Semaglutide-Francisco ght Management (Wegovy) 2.4 MG/0.75ML solution auto-injectorIn dications:Type 2 diabetes mellitus with hyperglycemia, without long-term current use of insulin ([facility]) Inject 2.4 mg as directed 1 (one) time per week. 0.75 mL 3 4 Active metoprolol succinate XL (Toprol-XL) 25 MG 24 hr tablet TAKE ONE TABLET BY MOUTH DAILY 90 tablet 3 4 Active Viagra 50 MG tabletIndicatio ns:Erectile dysfunction due to diseases classified elsewhere TAKE 1 TABLET 1 HOUR BEFORE SEXUAL RELATIONS ONCE DAILY NEEDED. 8 tablet 1 5 Active atorvastatin (Lipitor) 40 MG tablet Take 1 tablet (40 mg) by mouth in the morning. 90 tablet 5 Active lisinopril-hydr oCHLOROthiazide 20-12.5 MG tablet Take 1 tablet by mouth Once per day. 90 tablet 5 Active metFORMIN (Glucophage) 500 MG tablet Take 1 tablet (500 mg) by mouth with breakfast and with evening meal. 180 tablet 3 5 Active Tirzepatide (Mounjaro) 7.5 MG/0.5ML solution auto-injectorIn dications:Sever e obesity (BMI >= 40) (CMS/HCC),Type 2 diabetes mellitus with hyperglycemia, without long-term current use of insulin ([facility]) Inject 7.5 mg under the skin 1 (one) time per week. 2 mL 1 5 Active Tirzepatide-Francisco ght Management (Zepbound) 2.5 MG/0.5ML solution auto-injector Inject 0.5 mL (2.5 mg) under the skin every 7 (seven) days AND 0.5 mL (2.5 mg) every 7 (seven) days. 2 mL 1 5 01/05/20 25 Discontinu ed(Therapy completed) Tirzepatide-Francisco ght Management (Zepbound) 5 MG/0.5ML solutionIndicat ions:Type 2 diabetes mellitus with hyperglycemia, without long-term current use of insulin ([facility]),Sever e obesity (BMI >= 40) ([facility]) Inject 5 mg under the skin 1 (one) time per week. 2 mL 5 02/02/20 25 Discontinu ed(Dose adjustment ) Active Problems Problem Noted Date Diagnosed Date Severe obesity (BMI >= 40) 02/02/2021 Type 2 diabetes mellitus 12/19/2015 Hypertension 03/31/2013 Encounters Date Type Department Care Team Description 02/01/2025 Orders Only [facility] MED & PEDS [address] [place] [address] Cedrick Linton MD Severe obesity (BMI >= 40) ([facility]) (Primary Dx); Type 2 diabetes mellitus with hyperglycemia, without long-term current use of insulin ([facility]) 01/31/2025 Refill [facility] MEDICINE [address] [place] [address] Cedrick Linton MD Erectile dysfunction due to diseases classified elsewhere 01/06/2025 Population Health Risk Score Community [facility] (C3) Department [address] [address] Provider, Population Health Generic 01/04/2025 10:00 AM EDT Office Visit [facility] MED & PEDS [address] [place] [address] Cedrick Linton MD Type 2 diabetes mellitus with hyperglycemia, without long-term current use of insulin ([facility]) (Primary Dx); Severe obesity (BMI >= 40) ([facility]); Dietary counseling; Exercise counseling; Class 3 severe obesity due to excess calories with serious comorbidity and body mass index (BMI) of 40.0 to 44.9 in adult ([facility]); Primary hypertension 01/04/2025 Travel 01/01/2025 Telephone [facility] MED & PEDS [address] [place] [address] Cedrick Linton MD Chart Prep 12/31/2024 Refill [facility] MED & PEDS [address] [place] [address] Cedrick Linton MD 12/24/2024 Refill [facility] MEDICINE [address] [place] [address] Cedrick Linton MD 12/22/2024 Refill [facility] MEDICINE [address] [place] [address] Cedrick Linton MD from Last 3 Months Immunizations Name Administration Dates Next Due Influenza injectable quadrivalent preservative f ree 07/07/2019,09/19/2018 Pneumococcal Conjugate PCV 20 07/02/2024 Tdap 07/07/2019 Social History Tobacco Use Types Packs/Day Years Used Date Smoking Tobacco: Former Cigarettes 1 15 1 - 2013 Smokeless Tobacco: Never Tobacco Cessation:Counseling Given: Not Answered Alcohol Use Standard Drinks/Week Comments Not Currently 0 (1 standard drink = 0.6 oz pur e alcohol) Depression Answer Date Recorded Patient Health Questionnaire-9 Score 3 01/04/2025 Patient Health Questionnaire-9 Score 3 01/04/2025 Last PHQ-9: Questionnaire Data Not on file 0 01/04/2025 Housing Stability Answer Date Recorded What is your housing situation today? I have carmen green 01/04/[address] you li ve. Do you have problems with any of the following? None of the above 01/04/2025 Food Insecurity Answer Date Recorded Within the past 12 months, y ou worried that your food would run out before you got money to buy more: Never True 01/04/2025 Within the past 12 months,th e food [...] shut off services in your home? No 01/04/2025 Depression Answer Date Recorded Patient Health Questionnaire-2 Score 1 01/04/2025 Internet Access Answer Date Recorded Internet Access Q1 Yes 01/04/2025 Internet Access Q2 Not on file 01/04/2025 Sex and Gender Information Value Date Recorded Sex Assigned at Male 08/06/2022 10:22 AM EDT Legal Sex Male 10:22 AM EDT Gender Identity Male 08/06/2022 10:22 AM EDT Sexual Orientation Straight 08/06/2022 10 :22 AM EDT Last Filed Vital Signs Vital Sign Reading Time Taken Comments Blood Pressure 125/81 01/04/2025 9:57 AM EDT Pulse 67 01/04/2025 9:57 AM EDT Temperature 36.7 ??C (98 ??F) 01/04/2025 9:57 AM EDT Respiratory Rate 20 01/04/2025 9:57 AM EDT Oxygen Saturation 96% 01/04/2025 9:57 AM EDT Inhaled Oxygen Concentration - - Weight 131 kg (288 lb) 01/04/2025 9:57 AM EDT Height 177.8 cm (5' 10 ) 01/04/2025 9:57 AM EDT Body Mass Index 41.32 01/04/2025 9:57 AM EDT Plan of Treatment Upcoming Encounters Date Type Department Care Team (Late st Contact Info) Description 04/06/2025 1:45 PM EDT Office Visit [facility] MED & PEDS [address] [place] [address] Cedrick Linton MD [address] [place] [address] Health Maintenance Due Date Last Done Comments CT Colonography 1975 Colonoscopy 1975 Colorectal Cancer Screening 1975 FIT DNA/Cologuard 1975 FIT 1975 FOBT 1975 HIV Screening 1975 Sigmoidoscopy 1975 Eye Exam 1985 Family Planning (PISQ) 1990 Hepatitis B Vaccines (1 of 3 - 19+ 3-dose series) 1994 COVID-19 Vaccine ( season) 2024 Influenza Vaccine (#1) 2024 07/07/2019, 2017 SDOH Screening 12/26/2024 12/27/2023 Diabetes: Urine Protein Screening 07/02/2025 07/02/2024, 08/04/2021 Lipid Panel 07/02/2025 07/02/2024, 07/08, 01/26/2021 Tobacco Screening 07/02/2025 07/02/2024 Diabetes: Hemoglobin A1C 07/06/2025 025, 04/21/2024, 01/06/2024, Additional history exists Zoster Vaccines (1 of 2) 2025 Alcohol/Substance Use Screening 01/04/2026 01/04/2025 Depression Screening 01/04/2026 01/04/2025, 01/05/20 Diabetes: Foot Exam 01/04/2026 01/04/2025 DTaP/Tdap/Td Vaccines (2 - Td or Tdap) 07/07/2029 07/07/2019 RSV Patients and Patients Aged 60 years or older (1 - 1-dose 75+ series) 2050 Hepatitis C Screening Completed 07/02/2024 Pneumococcal Vaccine: Pediatrics (0 to 5 Years) and At-Risk Patients (6 to 49) Years) Completed 07/02/2024 HIB Vaccines Aged Out No longer eligi [...] patient's age to complete this topic Meningococcal Vaccine Aged Out No lashon mukesh eligible based on patient's age to complete this topic RSV under 20 months Aged Out No longe r eligible based on patient's age to complete this topic Rotavirus Vaccines Aged Out No longer eligible based on patient's age to complete this topic Procedures Procedure Name Priority Date/Time Associated Diagnosis Comments POCT GLUCOSE Routine 01/04/2025 10:13 AM EDT Type 2 diabetes mellitus with hyperglycemia, without long-term current use of insulin (CMS/HCC) POCT GLYCATED HEMOGLOBIN, TOTAL Routine 01/04/2025 10:12 AM EDT Type 2 diabetes mellitus with hyperglycemia, without long-term current use of insulin (CMS/HCC) ALBUMIN, RANDOM URINE W/CREATININE Routine 07/02/2024 10:20 AM EDT Type 2 diabetes mellitus with hyperglycemia, without long-term current use of insulin (CMS/HCC) HEPATITIS C AB W/REFL TO HCV RNA, QN, PCR Routine 07/02/2024 10:17 AM EDT Type 2 diabetes mellitus with hyperglycemia, without long-term current use of insulin (CMS/HCC) LIPID PANEL, STANDARD Routine 07/02/2024 10:17 AM EDT Type 2 diabetes mellitus with hyperglycemia, without long-term current use of insulin (CMS/HCC) from Last 3 Months or Most Recently Relevant to Health Maintenance Results * POCT Glucose (01/04/2025 10:13 AM EDT) Glucose Blood, POC 103 60 - 200 mg/dL QC Media Lot # [id number] Lot# Expiration Date 61,025 Comment:FASTING Blood Capillary blood specimen / Unknown 01/04/2025 10:13 AM EDT Cedrick Linton MD POINT OF CARE TEST ENTER/ED IT ORDERABLES Final Result * POCT HGB A1C (01/04/2025 10:12 AM EDT) Hemoglobin A1C 6.0 4.0 - 6.0 % QC Media Lot # [id number] Lot# Expiration Date Blood 01/04/2025 10:1 2 AM EDT us Cedrick Linton MD POINT OF CARE TEST ENTER/ED IT ORDERABLES Final Result * Albumin, Random Urine W/Creatinine (07/02/2024 10:20 AM EDT) Creatinine, Urine 202.78 mg/dL [facility] Microalbumin Urine 8.0 mg/L [facility] Microalbum Creatinine Ratio Ur 3.9 <30 ug/mg cr [facility] Comment:Albumin/Creatinine R atio Reference Ranges: Normal: < 30 ug/mg creatinine Microalbuminuria: 30 - 300 ug/mg creatinineClinical Albuminuria: > 300 ug/mg creatinine Urine (Urine, Random) 07/02/2024 10:20 AM EDT 07/02/2024 8:38 PM EDT us Cedrick Linton MD LAB URINE ORDERABLES Final Result Performing Organization Address [facility] Co de Phone Number [facility] [address] [place] [phone] * Hepatitis C Antibody with Reflex to HCV, RNA, Quantitative, Real-Time PCR (07/02/2024 10:17 AM EDT) Pathologist [facility] Hepatitis C Antibody Nonreactive Nonreactive [facility] Comment:Antibodies to HCV no t detected; does not exclude early acuteHCV infection. Blood Venous blood specimen / Unknown 07/02/2024 10:17 AM EDT 07/02/2024 2:13 PM EDT us Cedrick Linton MD LAB BLOOD ORDERABLES Final Result Performing Organization Address [facility] Co de Phone Number [facility] [address] [place] [phone] * Lipid Panel, Standard (07/02/2024 10:17 AM EDT) Pathologist [facility] Triglycerides 111 <150 mg/dL [facility] Comment:Desirable Triglyceri de: less than 150 mg/dLBorderline High Triglyceride 150-199 mg/dLHigh Triglyceride: 200-499 mg/dLVery High Triglyceride: greater than or equal to 5OO mg/dL Cholesterol 132 <200 mg/dL [facility] Comment:Desirable Cholestero l: less than 200 mg/dLBorderline High Cholesterol: 200-239 mg/dLHigh Cholesterol: greater than 239 mg/dL LDL Cholesterol Calculated 67 <100 mg/dL [facility] Comment:Desirable LDL: less than 100 mg/dLNear Optimal/Above Optimal LDL: 110- 129 mg/dLBorderline High LDL: 130-159 mg/dLHigh LDL: 160-189 mg/dLVery High LDL: greater than or equal to 190 mg/dL HDL Cholesterol 43 >40 mg/dL [facility] Comment:Desirable HDL: great er than 40 mg/dL Note: This HDL assay may give artificially low results in patients with liver disease. Blood Venous blood specimen / Unknown 07/02/2024 10:17 AM EDT 07/02/2024 2:13 PM EDT us Cedrick Linton MD LAB BLOOD ORDERABLES Final Result [facility] [address] [place] [phone] from Last 3 Months or Most Recently Relevant to Health Maintenance Insurance [address] [place], [place] [address]OneName C[employer] Care Teams Clay Shop Supervisor Relationship Specialty Start Date End Date Cedrick Linton MD [address] [place] [phone] PCP - General Internal Medicine 06/06/16
--- OUTSIDE RECORDS SUMMARY | 2025-02-02 10:52 | XMS_ITS | Encounter Summary ---
Author Organization [employer] Address [address] [facility] 7 [place] [address] Care Team Providers Care Wardrobe Assistant Name Role Phone Cedrick Linton MD Primary Care Provider [phone] Reason for Visit * Reason Comments Med Refill Encounter Details Date Type Department Care Team ([facility] st Contact Info) Description 01/31/[address] [facility] MEDICINE [address] [place] [address] Cedrick Linton MD [address] [place] [address] Erectile dysfunction due to diseases classified elsewhere Social History Tobacco Use Types Packs/Day Years [...] Description 04/06/2025 1:45 PM EDT Office Visit [facility] MED & PEDS [address] [place] [address] Cedrick Linton MD [address] [place] [address] documented as of this encounter Visit Diagnoses Diagnosis Erectile dysfunction due to diseases classified elsewhere documented in this encounter Additional Health Concerns Assessment Noted Time PHQ-9 Depression Total Score: 3 01/05/20 25 10:31 AM EDT documented as of this encounter Care Teams Wardrobe Assistant Relationship Specialty Start Date End Date Cedrick Linton MD [address] [place] [address] PCP - General Internal Medicine 06/06/16 documented as of this encounter
--- OUTSIDE RECORDS SUMMARY | 2025-02-02 10:52 | XMS_ITS | Encounter Summary ---
Author Organization [employer] Address [address] [place] [address] 7 [place] [address] Care Team Providers Care Spooling Operator Name Role Phone Cedrick Linton MD Primary Care Provider [phone] Encounter Details Date Type Department Care Team ([facility] st Contact Info) Description 02/01/2025 Orders Only [facility] MED & PEDS [address] [place], [place] [phone] Cedrick Linton MD [address] [place] [address] Severe obesity (BMI >= 40) (CMS/HCC) (Primary Dx); Type 2 diabetes mellitus with hyperglycemia, without long-term current use of insulin (CMS/HCC) Social History Tobacco Use Types Packs/Day [...] your housing situation today? I have carmen sing 01/04/[address] you li [...] Upcoming Encounters Date Type Department Care Team ([facility] st Contact Info) Description 04/06/2025 1:45 PM EDT Office Visit [facility] MED & PEDS [address] [place] [address] Cedrick Linton MD [address] [place] [address] documented as of this encounter Visit Diagnoses Diagnosis Severe obesity (BMI >= 40) (CMS/HCC)- Primary Type 2 diabetes mellitus with hyperglycemia, without long-term current use of insulin ([facility]) documented in this encounter Additional Health Concerns Assessment Noted Time PHQ-9 Depression Total Score: 3 01/05/20 25 10:31 AM EDT documented as of this encounter Care Teams Spooling Operator Relationship Specialty Start Date End Date Cedrick Linton MD [address] [place] [address] PCP - General Internal Medicine 06/06/16 documented as of this encounter
--- OUTSIDE RECORDS SUMMARY | 2025-02-02 10:52 | XMS_ITS | Encounter Summary ---
Author Organization [employer] Address [address] [facility] 7 [place] [address] Care Team Providers Care Pulp Beater Name Role Phone Cedrick Linton MD Primary Care Provider Reason for Visit * Reason Onset Date Comments Medication Question 06/18/2024 Encounter Details Date Type Department Care Team (Late st Contact Info) Description 06/18/2024 Telephone [facility] MEDICINE [address] [place] [address] Cedrick Linton MD [address] [place] [address] Medication Question Social History Tobacco Use Types Packs/Day Years Used Date Smoking Tobacco: Former Cigarettes 1 2013 Smokeless Tobacco: Never Alcohol Use Standard Drinks/Week Comments Not Currently 0 (1 standard drink = 0.6 oz pur e alcohol) Housing Stability Answer Date Recorded What is your housing situation today? I have carmenwei green 12/27/[address] you [...] the past 12 months, has t he [employer], oil or water [facility] threatened to shut off services in your home? No 12/27/2023 Sex and Gender Information Value Date Recorded Sex Assigned at Male 08/06/2022 10:22 AM EDT Legal Sex Male 10:22 AM EDT Gender Identity Male 08/06/2022 10:22 AM EDT Sexual Orientation Straight 08/06/2022 10 :22 AM EDT documented as of this encounter Miscellaneous Notes * Telephone Encounter - Nataly Sarabia MD - 06/19/2024 10:50 AM EDT sent * Telephone Encounter - Diomedes Beltre - 06/18/2024 3:17 PM EDT Tc from patient request for the higher dose of the Semaglutide-Weight Management (Wegovy) 1.7 MG/0.75ML solution auto-injector states has just completed the 1.7 documented in this encounter Plan of Treatment Upcoming Encounters Date Type Department Care Team (Late st Contact Info) Description 04/06/2025 1:45 PM EDT Office Visit [facility] MED & PEDS [address] [place] [address] Cedrick Linton MD [address] [place] [address] documented as of this encounter Visit Diagnoses Not on filedocumented in this encounter Care Teams Pulp Beater Relationship Specialty Start Date End Date Cedrick Linton MD [address] [place] [address] PCP - General Internal Medicine 06/06/16 documented as of this encounter
--- OUTSIDE RECORDS SUMMARY | 2025-02-02 10:52 | XMS_ITS | Encounter Summary ---
Author Organization [employer] Address [address] [place] [address] Care Team Providers Care Fruit Packer Name Role Phone Cedrick Linton MD Primary Care Provider Reason for Visit * Reason Comments Med Refill Encounter Details Date Type Department Care Team ([facility] Contact Info) Description 12/31/2024 Refill [facility] MED & PEDS [address] [place] [address] Cedrick Linton MD [address] [place] [address] Social History Tobacco Use Types Packs/Day Years Used Date Smoking Tobacco: Former Cigarettes 1 - 2013 Smokeless Tobacco: Never Alcohol Use Standard [...] 1:45 PM EDT Office Visit [facility] MED & PEDS [address] [place] [address] Cedrick Linton MD [address] [place] [address] documented as of this encounter Visit Diagnoses Not on filedocumented in this encounter Care Teams Fruit Packer Relationship Specialty Start Date End Date Cedrick Linton MD [address] [place] [address] PCP - General Internal Medicine 06/06/16 documented as of this encounter
--- OUTSIDE RECORDS SUMMARY | 2025-02-02 10:52 | XMS_ITS | Encounter Summary ---
Author Organization [employer] Address [address] [facility] 7 [place] [address] Care Team Providers Care Pole Classifier Name Role Phone Cedrick Linton MD Primary Care Provider [phone] Encounter Details Date Type Department Care Team ([facility] st Contact Info) Description 03/30/2024 Orders Only [facility] MED & PEDS [address] [place], [place] [phone] Cedrick Linton MD [address] [place] [address] Type 2 diabetes mellitus with hyperglycemia, without [...] 04/06/2025 1:45 PM EDT Office Visit [facility] MED & PEDS [address] [place] [address] Cedrick Linton MD [address] [place] [address] documented as of this encounter Visit Diagnoses Diagnosis Type 2 diabetes mellitus with hyperglycemia, without long-term current use of insulin (CMS/HCC)- Primary Severe obesity (BMI >= 40) (CMS/HCC) documented in this encounter Care Teams Pole Classifier Relationship Specialty Start Date End Date Cedrick Linton MD [address] [place] [address] PCP - General Internal Medicine 06/06/16 documented as of this encounter
--- OUTSIDE RECORDS SUMMARY | 2025-02-02 10:53 | XMS_ITS | Encounter Summary ---
Author Organization [employer] Address 75 [facility] 7 [place] [address] Care Team Providers Care Glass Beveler Name Role Phone Cedrick Linton MD Primary Care Provider [phone]- [phone] Encounter Details Date Type Department Care Team ([facility] st Contact Info) Description 01/22/2024 Orders Only [facility] MED & PEDS [address] [place], [place] [phone] Cedrick Linton MD [address] [place] [address] Type 2 diabetes mellitus with hyperglycemia, without [...] Description 04/06/2025 1:45 PM EDT Office Visit [facility] MED & PEDS [address] [place] [address] Cedrick Linton MD [address] [place] [address] documented as of this encounter Procedures Procedure Name Priority Date/Time Associated Diagnosis Comments US EXTREMITY NONVASCULAR FITCH Routine 02/20/2024 1:15 PM EDT documented in this encounter Results * US EXTREMITY NONVASCULAR FITCH (02/20/2024 1:15 PM EDT) Anatomical Region Laterality Modality Abdomen Ultrasound 02/20/2024 1:15 PM EDT Narrative 02/29/2024 9:51 PM EDT ? [facility] ?[address] ?[place] [address] ? Ultrasound Report ? Signed ? Patient: Ligia,Willie ?MR#: [id number] ?? 10 ? : 1975 ?Acct:[id number] ? Age/Sex: 48 / M ?ADM Date: 05/16/24 ? Loc: HO.US ? Attending Dr: Len Vargas MD ? Ordering Physician: Len Vargas MD ?? Date of Service: 02/20/24 ?? Procedure(s): US extremity nonvascular fitch ?? Accession Number(s): [id number] ? cc: Cedrick Linton MD; Len Vargas MD ? EXAMINATION: ?? ULTRASOUND LEFT ARM ? CLINICAL INFORMATION: ?? Palpable mass left medial elbow. ? COMPARISON: ?? None available. ? TECHNIQUE: ?? High-frequency linear ultrasound transducer was used to examine the ?? area of clinical concern. ? FINDINGS: ?? No abnormality is seen. No mass, joint effusion, fluid collection or ?? shadowing calcifications are seen. ? US/US extremity nonvascular fitch ?? IMPRESSION: ?? No abnormality is seen. ? Dictated By: ?Antione Reed MD ? Signed By: ?<Electronically signed by Antione Reed MD in OV> ? 02/29/247 ? DD/ 1315 ? TD/TT: ? Chemist Instrumentation: SS ? Procedure Note Get[place]w, Image - 03/03/2024 [place] [address] Ultrasound Report Signed Patient: Jony Strong#: [id number] 10 : 1975Acct:[id number] Age/Sex: 48 / MADM Date: 02/20/24 Loc: HO.US Attending Dr: Len Vargas MD Ordering Physician: Len Vargas MD Date of Service: 02/20/24 Procedure(s): US extremity nonvascular fitch Accession Number(s): [id number] cc: Cedrick Linton MD; Len Vargas MD EXAMINATION: ULTRASOUND LEFT ARM CLINICAL INFORMATION: Palpable mass left medial elbow. COMPARISON: None available. TECHNIQUE: High-frequency linear ultrasound transducer was used to examine the area of clinical concern. FINDINGS: No abnormality is seen. No mass, joint effusion, fluid collection or shadowing calcifications are seen. US/US extremity nonvascular fitch IMPRESSION: No abnormality is seen. Dictated By: Antione Reed MD Signed By: <Electronically signed by Antione Reed MD in OV> 02/29/242146 DD/ 1315 TD/TT: Chemist Instrumentation: SS us [facility] External Provider IMG US PROCEDURES Edited Result - Final documented in this encounter Visit Diagnoses Diagnosis Type 2 diabetes mellitus with hyperglycemia, without long-term current use of insulin ([facility]/HCC)- Primary Severe obesity (BMI >= 40) (CMS/HCC) documented in this encounter Care Teams Glass Beveler Relationship Specialty Start Date End Date Cedrick Linton MD [address] [place] [phone] PCP - General Internal Medicine 06/06/16 documented as of this encounter
== END 2025-02-02 10:42 | disposition home or self-care (01) ==
LOC: HO.HCS 09:45
PROVIDERS: PCP Internal Medicine; Visit Provider Internal Medicine Cardiovascular Disease
DX: I42.8 Other cardiomyopathies (principal)
CPT/HCPCS: 93010; 99214

== ENCOUNTER → 2025-02-02 09:44 | Outpatient (BNVA) | payer MEDICAID, SELFPAY | PROVIDERS: PCP Internal Medicine; Visit Provider Internal Medicine Cardiovascular Disease | DX: I42.8 Other cardiomyopathies (principal) | CPT/HCPCS: 93005; 99212 ==

== ENCOUNTER 2025-03-11 09:51 | Outpatient (REF) | payer MEDICAID, SELFPAY ==
--- OUTSIDE RECORDS SUMMARY | 2025-03-11 11:13 | XMS_ITS | Clinical Summary ---
Author Organization [facility] Address [address] [place] [address] Phone Care Team Providers Care Ship Erector Name Role Phone Cedrick Linton MD Primary Care Provider +1 [phone] Allergies Active Allergy Reactions Criticality Noted Date Comments Shrimp 03/07/2025 Encounters Date Type Department Care Team Description 03/07/2025 9:32 PM EDT - 03/08/2025 2:27 AM EDT Emergency Emergency [address] [place] [address] Left leg pain (Primary Dx); Paresthesia of left lower extremity Discharge Disposition: Home or Self Care from Last 3 Months Medical History Medical History Date Comments Pneumonia Cardiac arrest (CMS/HCC V24, CMS/[facility] V28) 2015 TIA (transient ischemic attack) History of transfusion Hyperlipemia Social History Tobacco Use Types Packs/Day Years [...] Sign Reading Time Taken Comments Blood Pressure 113/77 03/08/2025 12:54 AM EDT Pulse 63 03/08/2025 12:54 AM EDT Temperature 37 ??C (98.6 ??F) 03/08/2025 12:54 AM EDT Respiratory Rate 18 03/08/2025 12:54 AM EDT Oxygen Saturation 95% 03/08/2025 12:54 AM EDT Inhaled Oxygen Concentration - - Weight 133 kg (293 lb) 03/07/2025 8:16 PM EDT Height 182.9 cm (6') 03/07/2025 8:16 PM EDT Body Mass Index 39.74 03/07/2025 8:16 PM EDT Plan of Treatment Health Maintenance Due Date Last Done Comments Diabetes: Annual Foot Exam 1985 Diabetes: Annual Retina Eye Exam 1985 Hepatitis B Vaccines (1 of 3 - 19+ 3-dose series) 1994 Colorectal Cancer Screening: Colonoscopy 11/05/2023 HIV Screening 11/05/2023 Social Influencers of Health Screening 11/05/2023 COVID-19 Vaccine (2023-2 5 season) 2024 Diabetes: Annual Urine Albumin-Creatinine Ratio (uACR) 03/07/2025 Influenza Vaccine (Season Ended) 2025 07/07/2019, 09/19/2018 Diabetes: Blood Sugar Contro l Test (HGBA1C) 07/06/2025 01/04/2025 Depression Screening 01/04/2026 01/04/2025 Diabetes: Annual GFR (Glomerular Filtration Rate) 03/07/2026 03/07/2025 Hypertension/CHF/CAD Annual BMP Blood Test 03/07/2026 03/07/2025 Cholesterol Screening (Lipid Panel) 07/02/2029 07/02/2024 DTaP,Tdap,and Td Vaccines (2 - Td or Tdap) 07/07/2029 07/07/2019 Hepatitis C Screening Completed 07/02/2024 Pneumococcal Vaccine: Pediatrics (0 to 5 Years) and At-Risk Patients (6 to 64 Years) Completed 07/02/2024 HIB Vaccines Aged Out [...] to complete this topic RSV Immunization Patients Under 20 months Aged Out No longer eligible b ased on patient's age to complete this topic Varicella Vaccines Aged Out No longer eligible based on patient's age to complete this topic Procedures Procedure Name Priority Date/Time Associated Diagnosis Comments ECG ANNOTATED 03/09/2025 VAS US DUPLEX LOWER EXT VENOUS LEFT Routine 03/07/2025 10:53 PM EDT Left leg pain CT ANGIO HEAD/NECK WO AND/OR W CONTRAST STAT 03/07/2025 10:12 PM EDT POCT GLUCOSE BLOOD Routine 03/07/2025 8: 35 PM EDT CBC WITH AUTO DIFFERENTIAL STAT 03/07/2025 8:32 PM EDT MAGNESIUM STAT 03/07/2025 8:32 PM EDT BASIC METABOLIC PANEL STAT 03/07/2025 8:32 PM EDT CBC AND DIFFERENTIAL STAT 03/07/2025 8:32 PM EDT ECG 12-LEAD STAT 03/07/2025 8:26 PM EDT from Last 3 Months Results * ECG-Annotated (03/09/2025) us Provider Onbase MD ECG ORDERABLES Final Result * Vascular US duplex lower extremity venous left (03/07/2025 10:53 PM EDT) Anatomical Region Laterality Modality Vascular, Abdomen Ultrasound 03/08/2025 1:04 AM EDT Impressions 03/08/2025 1:05 AM EDT NO LEFT LOWER EXTREMITY DEEP VENOUS THROMBOSIS. -------- FINAL REPORT -------- Dictated By: AFUA KUMAR Dictated Date: 03/08/2025 01:04 ET Assigned Physician: AFUA KUMAR Reviewed and Electronically Signed By: AFUA KUMAR Signed Date: 03/08/2025 01:05 ET Workstation ID: [id number] Transcribed By: Self Edit Transcribed Date: 03/08/2025 01:04 ET Narrative 03/08/2025 1:05 AM EDT PROCEDURE: VAS US DUPLEX LOWER EXT VENOUS LEFT INDICATION: Pain TECHNIQUE: 2-D and color Doppler imaging of the left lower extremity venous vasculature with compression and augmentation maneuvers. COMPARISON: No priors available. FINDINGS: There is normal flow, compression, and augmentation from the common femoral through the popliteal vein. Visualized calf veins are patent Procedure Note Afua Kumar MD - 03/08/2025 PROCEDURE: VAS US DUPLEX LOWER EXT VENOUS LEFT INDICATION: Pain TECHNIQUE: 2-D and color Doppler imaging of the left lower extremityvenous vasculature with compression and augmentation maneuvers. COMPARISON: No priors available. FINDINGS: There is normal flow, compression, and augmentation from the commonfemoral through the popliteal vein. Visualized calf veins are patent IMPRESSION: NO LEFT LOWER EXTREMITY DEEP VENOUS THROMBOSIS. -------- FINAL REPORT -------- Dictated By: AFUA KUMAR Dictated Date: 03/08/2025 01:04 ET Assigned Physician: AFUA KUMAR Reviewed and Electronically Signed By: AFUA KUMAR Signed Date: 03/08/2025 01:05 ET Workstation ID: [id number] Transcribed By: Self Edit Transcribed Date: 03/08/2025 01:04 ET us Audie REINA CV VASCULAR PROCEDURES Final Res ult * CT Angio Head/Neck wo and/or w Contrast (03/07/2025 10:12 PM EDT) Anatomical Region Laterality Modality Head and Neck Computed Tomogra phy 03/07/2025 11:1 4 PM EDT Impressions 03/07/2025 11:14 PM EDT 1. Unremarkable head CT. 2. Patent head and neck CTA. No large vessel occlusion. This document has been electronically signed by: Tyson Solomon MD on 03/07/2025 23:14:07 Narrative 03/07/2025 11:14 PM EDT INDICATION: Transient ischemic attack (TIA) CT Head without contrast. CT angiography head and neck with contrast. 3D Postprocessing. Comparison: None Findings: HEAD CT: No intra-axial mass, midline shift, hydrocephalus, or acute hemorrhage. Mild cerebral atrophy. There is no sinus or mastoid fluid. The orbits are within normal limits. No skull fracture. HEAD AND NECK CTA: Aortic arch and cervical great vessels are patent. Incidental note of retropharyngeal bilateral internal carotid artery courses. No stenosis of the carotid systems or the vertebral arteries. Intracranial arteries are patent. No aneurysm, dissection, or occlusion. No abnormal intracranial enhancement. The visualized thyroid gland is unremarkable. No cervical mass or fluid collection. Lung apices clear. No acute fracture. Procedure Note Tyson Solomon MD - 03/07/2025 INDICATION: Transient ischemic attack (TIA) CT Head without contrast. CT angiography head and neck with contrast. 3D Postprocessing. Comparison: None Findings: HEAD CT: No intra-axial mass, midline shift, hydrocephalus, or acute hemorrhage. Mild cerebral atrophy. There is no sinus or mastoid fluid. The orbits are within normal limits. No skull fracture. HEAD AND NECK CTA: Aortic arch and cervical great vessels are patent. Incidental note of retropharyngeal bilateral internal carotid artery courses. No stenosisof the carotid systems or the vertebral arteries. Intracranial arteries are patent. No aneurysm, dissection, or occlusion. No abnormal intracranial enhancement. The visualized thyroid gland is unremarkable. No cervical mass or fluid collection. Lung apices clear. No acute fracture. IMPRESSION: 1. Unremarkable head CT. 2. Patent head and neck CTA. No large vessel occlusion. This document has been electronically signed by: Tyson Solomon MD on 03/07/2025 23:14:[address] PROCEDURES Final Result * (ABNORMAL) POCT Glucose, blood (03/07/2025 8:35 PM EDT) [facility] Signature Glucose POCT 186(H) 70 - 100 mg/dL 03/07/2025 8:36 PM EDT [facility]) [facility] Blood Capillary blood specimen / Unknown 03/07/2025 8:35 PM EDT 03/07/2025 8:37 PM EDT us Generic Provider Poct LAB POINT OF CARE TEST DOCKED DEVICE UNSOLICITED RESULTS Final Result [facility] [address] [place] [address], [place] [phone] * (ABNORMAL) CBC auto differential (03/07/2025 8:32 PM EDT) WBC 7.0 4.8 - 10.8 K/mcL LAB HEMETOLOGY METHOD 03/07/2025 10:02 PM EDT [facility] RBC 4.50 4.50 - 5.50 M/mcL LAB HEMETOLOGY [facility] Hemoglobin 12.0(L) 13.5 - 17.5 g/dL LAB HEMETOLOGY METHOD 03/07/2025 10:02 PM [facility] Hematocrit 37.5(L) 42.0 - 54.0 % LAB HEMETOLOGY METHOD 03/07/2025 10:[facility] MCV 83.3 79.0 - 98.0 FL LAB HEMETOLOGY METHOD 03/07/2025 10:02 PM [facility] MCH 26.7(L) 27.0 - 32.0 pcg LAB HEMETOLOGY METHOD 03/07/2025 10:02 PM EDT [facility] MCHC 32.0 32.0 - 37.0 g/dL LAB HEMETOLOGY METHOD 03/07/2025 10:02 PM [facility] RDW 13.1 11.0 - 15.0 % LAB HEMETOLOGY METHOD 03/07/2025 10:02 PM [facility] Platelets 170 130 - 400 K/mcL LAB HEMETOLOGY METHOD 03/07/2025 10:[facility] MPV 9.9 7.0 - 11.0 FL LAB HEMETOLOGY METHOD 03/07/2025 10:02 PM [facility] NRBC 0.0 <1.0 % LAB HEMETOLOGY METHOD 03/07/2025 10:02 PM [facility] NRBC Absolute 0.00 <0.10 K/mcL LAB HEMETOLOGY METHOD 03/07/2025 10:02 PM [facility] Neutrophils Relative 62.5 % LAB HEMETOLOGY METHOD 03/07/2025 10:02 PM [facility] Lymphocytes Relative 28.5 % LAB HEMETOLOGY METHOD 03/07/2025 10:02 PM [facility] Monocytes Relative 6.9 % LAB HEMETOLOGY METHOD 03/07/2025 10:02 PM [facility] Eosinophils Relative 2.1 % LAB HEMETOLOGY METHOD 03/07/2025 10:02 PM [facility] Basophils Relative 0.0 % LAB HEMETOLOGY METHOD 03/07/2025 10:02 PM [facility] Immature Granulocytes Relative 0.0 % LAB HEMETOLOGY METHOD 03/07/2025 10:02 PM [facility] Neutrophils Absolute 4.50 1.50 - 7.00 K/mcL LAB HEMETOLOGY METHOD 03/07/2025 10:02 PM [facility] Lymphocytes Absolute 2.05 1.00 - 5.00 K/mcL LAB HEMETOLOGY METHOD 03/07/2025 10:02 PM [facility] Monocytes Absolute 0.50 0.20 - 1.00 K/mcL LAB HEMETOLOGY METHOD 03/07/2025 10:02 PM [facility] Eosinophils Absolute 0.15 0.00 - 0.50 K/mcL LAB HEMETOLOGY METHOD 03/07/2025 10:02 PM EDT [facility] Basophils Absolute 0.00 0.00 - 0.20 K/[facility] HEMETOLOGY METHOD 03/07/2025 10:02 PM EDT [facility] Immature Granulocytes Absolute 0.00 0.00 - 0.03 K/[facility] HEMETOLOGY METHOD 03/07/2025 10:02 PM EDT [facility] Blood Venous blood specimen / Unknown Venipuncture / Unknown 03/07/2025 8:32 PM EDT 03/07/2025 9:18 PM EDT Tennille Lu Ishan Handy DO LAB BLOOD ORDERABLES Ary l Result Performing Organization Address [facility]/ZIP Co de Phone Number [facility] [address] [place] [address], [place] [phone] * Magnesium (03/07/2025 8:32 PM EDT) Magnesium 1.9 1.9 - 2.6 mg/dL LAB CHEMISTRY METHOD 03/07/2025 9:44 PM EDT [facility] Blood Venous blood specimen / Unknown Venipuncture / Unknown 03/07/2025 8:32 PM EDT 03/07/2025 9:18 PM EDT Tennille Lu Ishan Handy DO LAB BLOOD ORDERABLES Ary l Result [facility] [address] [place] [address], [place] [phone] * (ABNORMAL) Basic metabolic panel (03/07/2025 8:32 PM EDT) Sodium 136 133 - 145 mmol/L LAB CHEMISTRY METHOD 03/07/2025 9:44 PM EDT [facility] Potassium 3.7 3.5 - 5.5 mmol/L LAB CHEMISTRY METHOD 03/07/2025 9:44 PM EDT [facility] Chloride 104 96 - 110 mmol/L LAB CHEMISTRY METHOD 03/07/2025 9:44 PM [facility] CO2 28 21 - 32 mmol/L LAB CHEMISTRY METHOD 03/07/2025 9:44 PM [facility] Anion Gap 4 3 - 11 LAB CHEMISTRY METHOD 03/07/2025 9:44 PM EDT [facility] Glucose 165(H) 70 - 100 mg/dL LAB CHEMISTRY METHOD 03/07/2025 9:44 PM [facility] BUN 20 5 - 25 mg/dL LAB CHEMISTRY METHOD 03/07/2025 9:44 PM [facility] Creatinine 1.08 0.70 - 1.30 mg/dL LAB CHEMISTRY METHOD 03/07/2025 9:44 PM [facility] eGFR 84 >=60 mL/min/1. 73m2 LAB CHEMISTRY METHOD 03/07/2025 9:44 PM T [facility] Comment:Calculation based on the Chronic Kidney Disease Epidemiology Collaboration (CKD-EPI) equation refit without adjustment for race. BUN/Creatinine Ratio 18.5 LAB CHEMISTRY METHOD 03/07/2025 9:44 PM [facility] Calcium 9.5 8.5 - 10.5 mg/dL LAB CHEMISTRY METHOD 03/07/2025 9:44 PM T [facility] Blood Venous blood specimen / Unknown Venipuncture / Unknown 03/07/2025 8:32 PM EDT 03/07/2025 9:18 PM EDT us Tennille Handy DO LAB BLOOD ORDERABLES Ary l Result [facility] [address] [place] [address], [place] [phone] * ECG 12 lead (03/07/2025 8:26 PM EDT) Ventricular Rate ECG 65 BPM GEMUSE Atrial Rate 65 BPM GEMUSE P-R Interval 158 ms GEMUSE QRS Duration 102 ms GEMUSE Q-T Interval 384 ms GEMUSE QTc 399 ms GEMUSE P Wave Victor 31 degrees GEMUSE R Victor -32 degrees GEMUSE ECG Interpretation Normal sinus rhythm Left axis deviation Incomplete right bundle branch block Abnormal ECG When compared with ECG of 21-NOV-2023 20:21, No significant change was found Confirmed by KATHY HOPE ([id number]) on 03/09/2025 9:55:07 AM GEMUSE 03/07/2025 8:26 PM EDT 03/09/2025 9:55 AM EDT us Tennille Handy DO ECG ORDERABLES Final Res ult GEMUSE from Last 3 Months Insurance MEDICAID - [place] Advance Directives Documents on File Type Date Recorded Patient 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
[2025-03-11 11:21] LABS: Magnesium 2.1 mg/dL (1.6-2.6)
[2025-03-11 11:55] LABS: Folate 5.7 ng/mL (> or = 4.0); Vitamin B12 306 pg/mL (200-900)
== END 2025-03-11 09:52 | disposition home or self-care (01) ==
LOC: HO.CHCLDS 09:51
PROVIDERS: Visit Provider Internal Medicine
DX: R20.2 Paresthesia of skin (principal)
CPT/HCPCS: 36415; 82607; 82746; 83735

== ENCOUNTER 2025-07-07 08:41 | Outpatient (REF) | payer MEDICAID, SELFPAY ==
--- OUTSIDE RECORDS SUMMARY | 2025-07-07 09:17 | XMS_ITS | Encounter Summary ---
Author Organization [employer] Address [address] [facility] 7 [place] [address] Care Team Providers Care Real Estate Professional Name Role Phone Cedrick Linton MD Primary Care Provider [phone]- [phone] Encounter Details Date Type Department Care Team ([facility] st Contact Info) Description 02/16/2025 Orders Only [facility] MED [facility] PEDS [address] [place], [place] [phone] Cedrick Linton MD [address] [place] [address] Social History Tobacco Use Types Packs/Day Years [...] as of this encounter Plan of Treatment Not on file documented as of this encounter Visit Diagnoses Not on filedocumented in this encounter Additional Health Concerns Assessment Noted Time PHQ-9 Depression Total Score: 3 01/05/20 25 10:31 AM EDT documented as of this encounter Care Teams Real Estate Professional Relationship Specialty Start Date End Date Cedrick Linton MD [address] [place] [id number] PCP - General Internal Medicine 06/06/16 documented as of this encounter
--- OUTSIDE RECORDS SUMMARY | 2025-07-07 09:17 | XMS_ITS | Encounter Summary ---
Author Organization [employer] Address [address] [place] [address] 7 [place] [address] Care Team Providers Care Stone Sandblaster Name Role Phone Cedrick Linton MD Primary Care Provider [phone]- [phone] Encounter Details Date Type Department Care Team ([facility] st Contact Info) Description 02/01/2025 Orders Only [facility] MED & PEDS [address] [place], [place] [phone] Cedrick Linton MD [address] [place] [address] Severe obesity (BMI >= 40) (CMS/HCC) (Primary [...] Diagnosis Severe obesity (BMI >= 40) (CMS/HCC) (HCC)- Primary Type 2 diabetes mellitus with hyperglycemia, without long-term current use of insulin ([facility]) documented in this encounter Additional Health Concerns Assessment Noted Time PHQ-9 Depression Total Score: 3 01/05/20 25 10:31 AM EDT documented as of this encounter Care Teams Stone Sandblaster Relationship Specialty Start Date End Date Cedrick Linton MD [address] [place] [address] PCP - General Internal Medicine 06/06/16 documented as of this encounter
--- OUTSIDE RECORDS SUMMARY | 2025-07-07 09:17 | XMS_ITS | Encounter Summary ---
Author Organization [employer] Address [address] [place] [address] 7 [place] [address] Care Team Providers Care Song Plugger Name Role Phone Cedrick Linton MD Primary Care Provider Encounter Details Date Type Department Care Team ([facility] st Contact Info) Description 03/12/2025 Orders Only [facility] MED & PEDS [address] [place], [place] [phone] Cedrick Linton MD [address] [place] [address] Paresthesias (Primary Dx) Social History Tobacco Use Types Packs/Day Years [...] as of this encounter Visit Diagnoses Diagnosis Paresthesias- Primary Disturbance of skin sensation documented in this encounter Additional Health Concerns Assessment Noted Time PHQ-9 Depression Total Score: 3 01/05/20 25 10:31 AM EDT documented as of this encounter Care Teams Song Plugger Relationship Specialty Start Date End Date Cedrick Linton MD [address] [place] [phone] PCP - General Internal Medicine 06/06/16 documented as of this encounter
--- OUTSIDE RECORDS SUMMARY | 2025-07-07 09:17 | XMS_ITS | Clinical Summary ---
Author Organization [facility] Address [address] [place] [phone] Phone Care Team Providers Care Counter Tacker Name Role Phone Cedrick Linton MD Primary Care Provider +1 -[phone] Allergies Active Allergy Reactions Criticality Noted Date Comments Shrimp 03/07/2025 Medical History Medical History Date Comments Pneumonia Cardiac arrest ([facility] V24, [facility] V28) 2015 TIA (transient ischemic [...] 63 03/08/2025 12:54 AM EDT Temperature 37 C (98.6 F) 03/08/2025 12:54 AM EDT Respiratory Rate 18 03/08/2025 12:54 AM EDT Oxygen Saturation 95% 03/08/2025 12:54 AM EDT Inhaled Oxygen Concentration - - Weight 133 kg (293 lb) 03/07/2025 8:16 PM EDT Height 182.9 cm (6') 03/07/2025 8:16 PM EDT Body Mass Index 39.74 03/07/2025 8:16 PM EDT Plan of Treatment Health Maintenance Due Date Last Done Comments Colorectal Cancer Screening: Colonoscopy 1975 Diabetes: Annual Foot Exam 1985 Diabetes: Annual Retina Eye Exam 1985 Hepatitis B Vaccines (1 of 3 - 19+ 3-dose series) 1994 HIV Screening 11/05/2023 Social Influencers of Health Screening 11/05/2023 Depression Screening 10/07/2024 Diabetes: Annual Urine Albumin-Creatinine Ratio (uACR) 03/07/2025 COVID-19 Vaccine (1 - 2023-2 5 season) 2025 Influenza Vaccine (#1) 2025 9, 09/19/2018 Diabetes: Blood Sugar Contro l Test (HGBA1C) 07/06/2025 01/04/2025 Diabetes: Annual GFR (Glomerular Filtration Rate) 03/07/2026 03/07/2025 Hypertension/CHF/CAD Annual BMP Blood Test 03/07/2026 03/07/2025 Cholesterol Screening (Lipid Panel) 07/02/2029 07/02/2024 DTaP,Tdap,and Td Vaccines (2 - Td or Tdap) 07/07/2029 07/07/2019 RSV Immunization Adult Patients (1 - 1-dose 75+ series) 2050 Hepatitis C Screening Completed 07/02/2024 Pneumococcal Vaccine: Pediatrics (0 to 5 Years) and At-Risk Patients (6 to 49 Years) Completed 07/02/2024 HIB Vaccines Aged Out [...] Procedure Name Priority Date/Time Associated Diagnosis Comments BASIC METABOLIC PANEL STAT 03/07/2025 8:32 PM EDT from Last 3 Months or Most Recently Relevant to Health Maintenance Results * (ABNORMAL) Basic metabolic panel (03/07/2025 8:32 PM EDT) Sodium 136 133 - 145 mmol/L LAB CHEMISTRY METHOD 03/07/2025 9:44 PM [facility] Potassium 3.7 3.5 - 5.5 mmol/L LAB CHEMISTRY METHOD 03/07/2025 9:44 PM [facility] Chloride 104 96 - 110 mmol/L LAB CHEMISTRY METHOD 03/07/2025 9:44 PM [facility] CO2 28 21 - 32 mmol/L LAB CHEMISTRY METHOD 03/07/2025 9:44 PM [facility] Anion Gap 4 3 - 11 LAB CHEMISTRY METHOD 03/07/2025 9:44 PM [facility] Glucose 165(H) 70 - 100 mg/dL LAB CHEMISTRY METHOD 03/07/2025 9:44 PM [facility] BUN 20 5 - 25 mg/dL LAB CHEMISTRY METHOD 03/07/2025 9:44 PM [facility] Creatinine 1.08 0.70 - 1.30 mg/dL LAB CHEMISTRY METHOD 03/07/2025 9:44 PM [facility] eGFR 84 >=60 mL/min/1. 73m2 LAB CHEMISTRY METHOD 03/07/2025 9:44 PM [facility] Comment:Calculation based on the Chronic Kidney Disease Epidemiology Collaboration (CKD-EPI) equation refit without adjustment for race. BUN/Creatinine Ratio 18.5 LAB CHEMISTRY METHOD 03/07/2025 9:44 PM [facility] Calcium 9.5 8.5 - 10.5 mg/dL LAB CHEMISTRY METHOD 03/07/2025 9:44 PM [facility] Blood Venous blood specimen / Unknown Venipuncture / Unknown 03/07/2025 8:32 PM EDT 03/07/2025 9:18 PM EDT us Tennille Handy DO LAB BLOOD ORDERABLES Ary l Result [facility] [address] [place] [address], from Last 3 Months or Most Recently Relevant to Health Maintenance Insurance MEDICAID - [place] Advance Directives Documents on File Type Date Recorded 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
--- OUTSIDE RECORDS SUMMARY | 2025-07-07 09:17 | XMS_ITS | Encounter Summary ---
Author Organization [employer] Address [address] [place] [address] Care Team Providers Care Die Barber Name Role Phone Cedrick Linton MD Primary Care Provider +1- [phone] Reason for Visit * Reason Onset Date Comments Med Refill 02/15/2025 Encounter Details Date Type Department Care Team ([facility] st Contact Info) Description 02/15/2025 Refill [facility] [address] [place] [address] Cedrick Linton MD [address] [place] [address] Severe obesity (BMI >= 40) (CMS/HCC); Type 2 diabetes mellitus with hyperglycemia, without [...] Diagnosis Severe obesity (BMI >= 40) (CMS/HCC) (HCC) Type 2 diabetes mellitus with hyperglycemia, without long-term current use of insulin ([facility]) documented in this encounter Additional Health Concerns Assessment Noted Time PHQ-9 Depression Total Score: 3 01/05/20 25 10:31 AM EDT documented as of this encounter Care Teams Die Barber Relationship Specialty Start Date End Date Cedrick Linton MD [address] [place] [address] PCP - General Internal Medicine 06/06/16 documented as of this encounter
--- OUTSIDE RECORDS SUMMARY | 2025-07-07 09:17 | XMS_ITS | Encounter Summary ---
Author Organization [employer] Address [address] [place] [address] Care Team Providers Care Airplane Engineer Name Role Phone Cedrick Linton MD Primary Care Provider [phone]- [phone] Reason for Visit * Reason Comments Med Refill Encounter Details Date Type Department Care Team ([facility] Contact Info) Description 12/31/2024 Refill [facility] MED & PEDS [address] [place] [address] Cedrick Linton MD [address] [place] [address] Social History Tobacco Use Types Packs/Day Years [...] on filedocumented in this encounter Care Teams Airplane Engineer Relationship Specialty Start Date End Date Cedrick Linton MD [address] [place] [id number] PCP - General Internal Medicine 06/06/16 documented as of this encounter
--- OUTSIDE RECORDS SUMMARY | 2025-07-07 09:17 | XMS_ITS | Clinical Summary ---
Author Organization [employer] Address [address] [place] [address] Care Team Providers Care Computer Game Designer Name Role Phone Cedrick Linton MD Primary Care Provider Allergies Active Allergy Reactions Criticality Noted Date Comments Shellfish Allergy 06/15/2025 Medications metoprolol succinate XL (Toprol-XL) 25 MG 24 hr tablet TAKE ONE TABLET BY MOUTH DAILY 90 tablet 3 09/11/20 24 Active metFORMIN (Glucophage) 500 MG tablet Take 1 tablet (500 mg) by mouth with breakfast and with evening meal. 180 tablet 3 12/26/19 25 Active b complex vitamins capsuleIndicati ons:Paresthesia s Take 1 capsule by mouth Once per day. 30 capsule 11 03/12/20 25 026 Active Tirzepatide 10 MG/0.5ML solution auto-injector Inject 10 mg under the skin 1 (one) time per week. 2 mL 1 05/17/20 25 Active sildenafil (Viagra) 50 MG tabletIndicatio ns:Erectile dysfunction due to diseases classified elsewhere TAKE 1 TABLET 1 HOUR BEFORE SEXUAL RELATIONS ONCE DAILY NEEDED. 8 tablet 1 06/15/20 25 Active Tirzepatide (Mounjaro) 12.5 MG/0.5ML solution auto-injectorIn dications:Type 2 diabetes mellitus with hyperglycemia, without long-term current use of insulin (HCC),Obesity (BMI 30-39.9) Inject 12.5 mg under the skin 1 (one) time per week. 2 mL 2 06/14/20 25 Active Vitamins-Lipotr opics (B Complex Formula 1, Lipotrop,) tablet Take 1 tablet by mouth Once per day. 03/12/20 25 Active lisinopril-hydr oCHLOROthiazide 20-12.5 MG tablet TAKE ONE TABLET DAILY 90 tablet 1 06/22/20 25 Active atorvastatin (Lipitor) 40 MG tablet TAKE ONE TABLET EVERY MORNING 90 tablet 1 06/22/20 25 Active Aspirin Low Dose 81 MG EC tablet Take 1 tablet (81 mg) by mouth in the morning. 30 tablet 11 11/08/19 24 025 Discontinued(Th erapy completed) lisinopril-hydr oCHLOROthiazide 20-12.5 MG tablet Take 1 tablet by mouth Once per day. 90 tablet 03/24/20 25 025 Discontinued atorvastatin (Lipitor) 40 MG tablet Take 1 tablet (40 mg) by mouth in the morning. 90 tablet 03/24/20 25 025 Discontinued sildenafil (Viagra) 50 MG tabletIndicatio ns:Erectile dysfunction due to diseases classified elsewhere TAKE 1 TABLET 1 HOUR BEFORE SEXUAL RELATIONS ONCE DAILY NEEDED. 8 tablet 1 04/08/20 25 025 Discontinued(Re order (will not trigger notification to Pharmacy)) polyethylene glycol, PEG, 3350 (Miralax) 17 g packetIndicatio ns:Drug-induced constipation Take 17 g by mouth Once per day for 3 days. 5 packet 06/14/20 25 025 Active Problems Problem Noted Date Diagnosed Date Obstructive sleep apnea 06/14/2025 Severe obesity (BMI >= 40) ([facility]) 02/02/2021 Type 2 diabetes mellitus 12/19/2015 Assessment & Plan (05/17/2025 9:43 AM EDT): Tolerating mounjaro, will increase dose to 10mg, continue low carb/no sugar diet, exercise as tolerated, follow up as scheduled Hypertension 03/31/2013 Encounters Date Type Department Care Team Description 07/05/2025 Telephone [facility] MED & PEDS [address] [place], [place] [phone] Cedrick Linton MD reschedule appt 06/21/2025 Refill [facility] MEDICINE [address] [place], [place] [phone] Cedrick Linton MD 06/14/2025 3:30 PM EDT Office Visit [facility] MED & PEDS [address] [place] [address] Cedrick Linton MD Drug-induced constipation (Primary Dx); Type 2 diabetes mellitus with hyperglycemia, without long-term current use of insulin ([facility]); Obesity (BMI 30-39.9); Screening for colon cancer; Obstructive sleep apnea syndrome; Obstructive sleep apnea 06/14/2025 Travel 06/14/2025 Refill [facility] MED & PEDS [address] [place] [address] Cedrick Linton MD Erectile dysfunction due to diseases classified elsewhere 06/11/2025 Telephone [facility] MED & PEDS [address] [place] [address] Cedrick Linton MD chart prep 05/25/2025 10:40 AM EDT Office Visit [facility] OPTOMETRY [address] [place] [address] Louis, Shea, OD Diabetes type 2, no ocular involvement ([facility]/HCC) (Primary Dx); Suspicious optic nerve cupping of both eyes 05/25/2025 Travel 05/24/2025 Travel 05/17/2025 9:00 AM EDT Telemedicine [facility] MED & PEDS [address] [place] [address] Kervin Soria MD Type 2 diabetes mellitus with hyperglycemia, without long-term current use of insulin ([facility]) (Primary Dx); Severe obesity (BMI >= 40) (CMS/HCC) 05/17/2025 Travel 05/12/2025 Telephone [facility] MED & PEDS [address] [place] [address] Cedrick Linton MD 05/06/2025 Refill [facility] MED & PEDS [address] [place] [address] Cedrick Linton MD Severe obesity (BMI >= 40) ([facility]/HCC); Type 2 diabetes mellitus with hyperglycemia, without long-term current use of insulin (CMS/HCC) 05/04/2025 Refill [facility] MED & PEDS [address] [place] [address] Cedrick Linton MD Severe obesity (BMI >= 40) ([facility]); Type 2 diabetes mellitus with hyperglycemia, without long-term current use of insulin ([facility]) 04/08/2025 Refill [facility] MED & PEDS [address] [place] [address] Cedrick Linton MD Erectile dysfunction due to diseases classified elsewhere 04/07/2025 Telephone [facility] MED & PEDS [address] [place] [address] Cedrick Linton MD Prior Authorization from Last 3 Months Immunizations Immunization Administration Dates Next Due Influenza injectable quadrivalent preservative f ree 07/07/2019,09/19/2018 Pneumococcal Conjugate PCV 20 07/02/2024 Tdap 07/07/2019 Social History Tobacco Use Types Packs/Day Years Used Date Smoking Tobacco: Former Cigarettes 1 15 1 999 - 2013 Smokeless Tobacco: Never Tobacco Cessation:Counseling Given: Not Answered Alcohol Use Standard Drinks/Week Comments Not Currently 0 (1 standard drink = 0.6 oz pur e alcohol) Depression Answer Date Recorded Patient Health Questionnaire-9 Score 0 06/14/2025 Patient Health Questionnaire-9 Score 0 06/14/2025 Last PHQ-9: Questionnaire Data Not on file 0 06/14/2025 Housing Stability Answer Date Recorded What is [...] getting things needed for daily living? No 06/14/2025 Utilities Answer Date Recorded In the past 12 months, has t he electric, gas, oil or water company threatened to shut off services in your home? No 01/04/2025 Depression Answer Date Recorded Patient Health Questionnaire-2 Score 0 06/14/2025 Internet Access Answer Date Recorded Internet Access [...] Sign Reading Time Taken Comments Blood Pressure 116/77 06/14/2025 2:59 PM EDT Pulse 70 06/14/2025 2:59 PM EDT Temperature 36.9 C (98.4 F) 06/14/2025 2:59 PM EDT Respiratory Rate 20 06/14/2025 2:59 PM EDT Oxygen Saturation 98% 03/11/2025 9:29 AM EDT Inhaled Oxygen Concentration - - Weight 120 kg (265 lb) 06/14/2025 2:59 PM EDT Height 177.8 cm (5' 10 ) 06/14/2025 2:59 PM EDT Body Mass Index 38.02 06/14/2025 2:59 PM EDT Plan of Treatment Health Maintenance Due Date Last Done Comments CT Colonography 1975 Colonoscopy 1975 Colorectal Cancer Screening 1975 FIT DNA/Cologuard 1975 FIT 1975 FOBT 1975 HIV Screening 1975 Sigmoidoscopy 1975 Disability Screening 1975 Eye Exam 1985 Family Planning (PISQ) 1990 Hepatitis B Vaccines (1 of 3 - 19+ 3-dose series) 1994 COVID-19 Vaccine ( season) 2025 Influenza Vaccine (#1) 2025 07/07/2019, 2017 Diabetes: Urine Protein Screening 07/02/2025 07/02/2024, 08/04/2021 Lipid Panel 07/02/2025 07/02/2024, 10/06/2021, 01/26/2021 Zoster Vaccines (1 of 2) 2025 Diabetes: Hemoglobin A1C 09/10/2025 025, 01/04/2025, 04/21/2024, Additional history exists Diabetes: Foot Exam 01/04/2026 01/04/2025 Alcohol/Substance Use Screening 06/14/2026 06/14/2025 Depression Screening 06/14/2026 06/14/2025, 06/14/20 25 SDOH Screening 06/14/2026 06/14/2025 Tobacco Screening 06/15/2026 06/15/2025 DTaP/Tdap/Td Vaccines (2 - Td or Tdap) 07/07/2029 07/07/2019 RSV Patients and Patients Aged 60 years or older (1 - 1-dose 75+ series) 2050 Hepatitis C Screening Completed 07/02/2024 Pneumococcal Vaccine: Pediatrics (0 to 5 Years) and At-Risk Patients (6 to 49) Years Completed 07/02/2024 HIB Vaccines Aged Out No [...] Date/Time Associated Diagnosis Comments POCT GLUCOSE Routine 06/14/2025 3:00 PM EDT Type 2 diabetes mellitus with hyperglycemia, without long-term current use of insulin ([facility]/HCC) FUNDUS PHOTOS - OU - BOTH EYES Routine 05/25/2025 10:40 AM EDT Diabetes type 2, no ocular involvement (CMS/HCC) Suspicious optic nerve cupping of both eyes POCT GLYCATED HEMOGLOBIN, TOTAL Routine 03/11/2025 10:07 AM EDT Type 2 diabetes mellitus with [...] to Health Maintenance Results * POCT Glucose (06/14/2025 3:00 PM EDT) Glucose Blood, POC 103 60 - 200 mg/dL QC Media Lot # [id number] Lot# Expiration Date Blood Capillary blood specimen / Unknown 06/14/2025 3:00 PM EDT Cedrick Linton MD POINT OF CARE TEST ENTER/ED IT ORDERABLES Final Result * Fundus Photos - OU - Both Eyes (05/25/2025 10:40 AM EDT) Narrative Shea Myers, OD - 06/16/2025 2:42 PM EDT Images from the original result were not included. Right Eye Disc findings include (Cup-to-disc ratio: 0.75/0.75, no NVD). Macula findings include normal observations (No CSME/SRF). Vessel findings include normal observations. Periphery findings include normal observations (No NVE). Left Eye Disc findings include (Cup-to-disc ratio: 0.7/0.7, no NVD). Macula findings include normal observations (No CSME/SRF). Vessel findings include normal observations. Periphery findings include normal observations (No NVE). Notes Assessment and Plan: No diabetic retinopathy noted to extent seen in either eye. No suspicion for macular edema in either eye. He does have large nerves with large optic nerve cupping that appears healthy. No suspicion for glaucoma at this time. Will schedule him for a refraction. Shea Myers OD OPHTH PHOTOGRAPHY Edited Resu lt - Final * (ABNORMAL) POCT HGB A1C (03/11/2025 10:07 AM EDT) Hemoglobin A1C 6.2(A) 4.0 - 6.0 % QC Media Lot # [id number] Lot# Expiration Date Blood 03/11/2025 10:0 7 AM EDT Cedrick Lniton MD POINT OF CARE TEST ENTER/ED IT ORDERABLES Final Result * Albumin, Random Urine W/Creatinine (07/02/2024 10:20 AM EDT) Creatinine, Urine 202.78 mg/dL [facility] Microalbumin Urine 8.0 mg/L [facility] Microalbum Creatinine Ratio Ur 3.9 <30 ug/mg cr [facility] Comment:Albumin/Creatinine R atio Reference Ranges: Normal: < 30 ug/mg creatinine Microalbuminuria: 30 - 300 ug/mg creatinineClinical Albuminuria: > 300 ug/mg creatinine Urine (Urine, Random) 07/02/2024 10:20 AM EDT 07/02/2024 8:38 PM EDT Cedrick Linton MD LAB URINE ORDERABLES Final Result [facility] [address] [place] [phone] * Hepatitis C Antibody with Reflex to HCV, RNA, Quantitative, Real-Time PCR (07/02/2024 10:17 AM EDT) Hepatitis C Antibody Nonreactive Nonreactive [facility] Comment:Antibodies to HCV no t detected; does not exclude early acuteHCV infection. Blood Venous blood specimen / Unknown 07/02/2024 10:17 AM EDT 07/02/2024 2:13 PM EDT us Cedrick Linton MD LAB BLOOD ORDERABLES Final Result Performing Organization Address [facility] Co de Phone Number [facility] [address] [place] [phone] * Lipid Panel, Standard (07/02/2024 10:17 AM EDT) Triglycerides 111 <150 mg/dL [facility] Comment:Desirable Triglyceri de: less than 150 mg/dLBorderline High Triglyceride 150-199 mg/dLHigh Triglyceride: 200-499 mg/dLVery High Triglyceride: greater than or equal to 5OO mg/dL Cholesterol 132 <200 mg/dL [facility] Comment:Desirable Cholestero l: less than 200 mg/dLBorderline High Cholesterol: 200-239 mg/dLHigh Cholesterol: greater than 239 mg/dL LDL Cholesterol Calculated 67 <100 mg/dL [facility] Comment:Desirable LDL: less than 100 mg/dLNear Optimal/Above Optimal LDL: 110- 129 mg/dLBorderline High LDL: 130-159 mg/dLHigh LDL: 160-189 mg/dLVery High LDL: greater than or equal to 190 mg/dL HDL Cholesterol 43 >40 mg/dL [facility] Comment:Desirable HDL: great er than 40 mg/dL Note: This HDL assay may give artificially low results in patients with liver disease. Blood Venous blood specimen / Unknown 07/02/2024 10:17 AM EDT 07/02/2024 2:13 PM EDT us Cedrick Linton MD LAB BLOOD ORDERABLES Final Result Performing Organization Address [facility]/ZIP Co de Phone Number [facility] [address] [place] [phone] from Last 3 Months or Most Recently Relevant to Health Maintenance Insurance [facility] C3 Care Teams Computer Game Designer Relationship Specialty Start Date End Date Cedrick Linton MD [address] [place] [phone] PCP - General Internal Medicine 06/06/16
--- OUTSIDE RECORDS SUMMARY | 2025-07-07 09:17 | XMS_ITS | Encounter Summary ---
Author Organization [employer] Address [address] [place] [address] 7 [place] [address] Care Team Providers Care Instructional Material Director Name Role Phone Cedrick Linton MD Primary Care Provider [phone] Reason for Visit * Reason Onset Date Comments Med Refill 03/23/2025 Encounter Details Date Type Department Care Team (Late st Contact Info) Description 03/23/2025 Refill [facility] MEDICINE [address] [place] [address] Cedrick Linton MD [address] [place] [address] Social History Tobacco Use Types Packs/Day Years [...] documented as of this encounter Care Teams Instructional Material Director Relationship Specialty Start Date End Date Cedrick Linton MD [address] [place] [phone] PCP - General Internal Medicine 06/06/16 documented as of this encounter
--- OUTSIDE RECORDS SUMMARY | 2025-07-07 09:17 | XMS_ITS | Encounter Summary ---
Author Organization [employer] Address [address] [facility] 7 [place] [address] Care Team Providers Care Powered Bridge Specialist Name Role Phone Cedrick Linton MD Primary Care Provider [phone] Encounter Details Date Type Department Care Team ([facility] st Contact Info) Description 01/22/2024 Orders Only [facility] CHC MED & PEDS [address] [place], [place] [phone] Cedrick Linton MD [address] [place] [address] Type 2 diabetes mellitus with hyperglycemia, without [...] on file documented as of this encounter Procedures Procedure Name Priority Date/Time Associated Diagnosis Comments US EXTREMITY NONVASCULAR FITCH Routine 02/20/2024 1:15 PM EDT documented in this encounter Results * US EXTREMITY NONVASCULAR FITCH (02/20/2024 1:15 PM EDT) Anatomical Region Laterality Modality Abdomen Ultrasound 02/20/2024 1:15 PM EDT Narrative 02/29/2024 9:51 PM EDT [place] [address] Ultrasound Report Signed Patient: Willie Strong MR#: [id number] 10 : 1975 Acct:[id number] Age/Sex: 48 / M ADM Date: 02/20/24 Loc: HO.US Attending Dr: Len Vargas MD Ordering Physician: Len Vargas MD Date of Service: 02/20/24 Procedure(s): US extremity nonvascular fitch Accession Number(s): [id number] cc: Cedrick Linton MD; Len Vargas MD [...] MD in OV> 02/29/242146 DD/ 1315 TD/TT: After School Program Assistant: SS Procedure Note Donotuseinterpreter, Image - 03/03/[address] [address] Ultrasound Report Signed Patient: Jony Strong#: [id number] 10 : 1975Acct:[id number] Age/Sex: 48 / MADM Date: 02/20/24 Loc: HO.US Attending Dr: Len Vargas MD Ordering Physician: Len Vargas MD Date of Service: 02/20/24 Procedure(s): US extremity nonvascular fitch Accession Number(s): [id number] cc: Cedrick Linton MD; Len Vargas MD [...] MD in OV> 02/29/242146 DD/ 1315 TD/TT: After School Program Assistant: SS us [facility] External Provider IMG US PROCEDURES Edited Result - Final documented in this encounter Visit Diagnoses Diagnosis Type 2 diabetes mellitus with hyperglycemia, without long-term current use of insulin (HCC)- Primary Severe obesity (BMI >= 40) (CMS/HCC) (HCC) documented in this encounter Care Teams Powered Bridge Specialist Relationship Specialty Start Date End Date Cedrick Linton MD [address] [place] [phone] PCP - General Internal Medicine 06/06/16 documented as of this encounter
--- OUTSIDE RECORDS SUMMARY | 2025-07-07 09:17 | XMS_ITS | Encounter Summary ---
Author Organization [employer] Address 75 [facility] 7 [place] [address] Care Team Providers Care Loan Consultant Name Role Phone Cedrick Linton MD Primary Care Provider Reason for Visit * Reason Onset Date Comments Medication Question 06/18/2024 Encounter Details Date Type Department Care Team (Late st Contact Info) Description 06/18/2024 Telephone [facility] MEDICINE [address] [place] [address] Cedrick Linton MD [address] [place] [address] Medication Question Social History Tobacco Use Types [...] the past 12 months, has t he [employer], [email or web address], oil or water [employer] threatened to shut off services in your [...] documented in this encounter Plan of Treatment Not on file documented as of this encounter Visit Diagnoses Not on filedocumented in this encounter Care Teams Loan Consultant Relationship Specialty Start Date End Date Cedrick Linton MD [address] [place] [phone] PCP - General Internal Medicine 06/06/16 documented as of this encounter
--- OUTSIDE RECORDS SUMMARY | 2025-07-07 09:17 | XMS_ITS | Encounter Summary ---
Author Organization [employer] Address [address] [place] [address] Care Team Providers Care Gymnastic Teacher Name Role Phone Cedrick Linton MD Primary Care Provider Reason for Visit * Reason Onset Date Comments reschedule appt 07/05/2025 Encounter Details Date Type Department Care Team ([facility] st Contact Info) Description 07/05/2025 Telephone [facility] MED & PEDS [address] [place] [address] Cedrick Linton MD [address] [place] [address] reschedule appt Social History Tobacco Use Types Packs/Day Years [...] encounter Miscellaneous Notes * Telephone Encounter - Carlie Bell MA - 07/05/2025 10:12 AM EDT Called pt to reschedule appointment from 08/13/2025 [facility] TO SCHEDULE APPT documented in this encounter Plan of Treatment Not on file documented as of this encounter Visit Diagnoses Not on filedocumented in this encounter Additional Health Concerns Assessment Noted Time PHQ-9 Depression Total Score: 0 06/14/20 25 3:43 PM EDT documented as of this encounter Care Teams Gymnastic Teacher Relationship Specialty Start Date End Date Cedrick Linton MD [address] [place] [address] [place] [address] PCP - General Internal Medicine 06/06/16 documented as of this encounter
--- OUTSIDE RECORDS SUMMARY | 2025-07-07 09:17 | XMS_ITS | Encounter Summary ---
Author Organization [employer] Address [address] [place] [address] Care Team Providers Care Penology Professor Name Role Phone Cedrick Linton MD Primary Care Provider [phone] Reason for Visit * Reason Onset Date Comments Med Refill 03/19/2025 Encounter Details Date Type Department Care Team ([facility] st Contact Info) Description 03/19/2025 Refill [facility] MED & PEDS [address] [place] [address] Cedrick Linton MD [address] [place] [address] Severe obesity (BMI >= 40) (CMS/HCC); Type [...] hyperglycemia, without long-term current use of insulin ([facility]) documented in this encounter Additional Health Concerns Assessment Noted Time PHQ-9 Depression Total Score: 3 01/05/20 25 10:31 AM EDT documented as of this encounter Care Teams Penology Professor Relationship Specialty Start Date End Date Cedrick Linton MD [address] [place] [address] PCP - General Internal Medicine 06/06/16 documented as of this encounter
--- OUTSIDE RECORDS SUMMARY | 2025-07-07 09:17 | XMS_ITS | Encounter Summary ---
Author Organization [facility] Address [address] [place] [address] Care Team Providers Care Health Advocate Name Role Phone Cedrick Linton MD Primary Care Provider Encounter Details Date Type Department Care Team ([facility] st Contact Info) Description 11/01/2022 Orders Only [facility] CHC MED & PEDS [address] [place] [address] Mirian Astorga LPN Social History Tobacco Use [...] on filedocumented in this encounter Care Teams Health Advocate Relationship Specialty Start Date End Date Cedrick Linton MD [address] [place] [address] PCP - General Internal Medicine 06/06/16 documented as of this encounter
--- OUTSIDE RECORDS SUMMARY | 2025-07-07 09:17 | XMS_ITS | Encounter Summary ---
Author Organization [employer] Address 75 [facility] 7 [place] [address] Care Team Providers Care Fish Hatchery Manager Name Role Phone Cedrick Linton MD Primary Care Provider Encounter Details Date Type Department Care Team ([facility] st Contact Info) Description 05/18/2024 Orders Only [facility] CHC MED & PEDS [address] [place], [place] [phone] Cedrick Linton MD [address] [place] [address] Type 2 diabetes mellitus with hyperglycemia, without [...] (HCC) documented in this encounter Care Teams Fish Hatchery Manager Relationship Specialty Start Date End Date Cedrick Linton MD [address] [place] [phone] PCP - General Internal Medicine 06/06/16 documented as of this encounter
--- OUTSIDE RECORDS SUMMARY | 2025-07-07 09:17 | XMS_ITS | Encounter Summary ---
Author Organization [employer] Address [address] [facility] 7 [place] [address] Care Team Providers Care Insulation Board Head Saw Operator Name Role Phone Cedrick Linton MD Primary Care Provider [phone] Encounter Details Date Type Department Care Team (Late st Contact Info) Description 03/09/2025 Orders Only [facility] [address] [place] [address] Provider, MD Chandler Social History Tobacco Use Types Packs/Day Years Used Date Smoking Tobacco: Former Cigarettes 2013 Smokeless Tobacco: Never Alcohol Use Standard [...] Name Priority Date/Time Associated Diagnosis Comments ECG 12-LEAD Routine 03/07/2025 10:34 AM EDT documented in this encounter Results * ECG 12 lead (03/07/2025 10:34 AM EDT) us Historical Provider ECG ORDERABLES Final Res ult documented in this encounter Visit Diagnoses Not on filedocumented in this encounter Additional Health Concerns Assessment Noted Time PHQ-9 Depression Total Score: 3 01/05/20 25 10:31 AM EDT documented as of this encounter Care Teams Insulation Board Head Saw Operator Relationship Specialty Start Date End Date Cedrick Linton MD [address] [place] [phone] PCP - General Internal Medicine 06/06/16 documented as of this encounter
--- OUTSIDE RECORDS SUMMARY | 2025-07-07 09:17 | XMS_ITS | Encounter Summary ---
Author Organization [employer] Address [address] [place] [address] 7 [place] [address] Care Team Providers Care Cook Restaurant Name Role Phone Cedrick Linton MD Primary Care Provider Reason for Visit * Reason Comments Med Refill Encounter Details Date Type Department Care Team ([facility] Contact Info) Description 06/24/2024 Refill [facility] CHC MED & PEDS [address] [place] [address] Cedrick Linton MD [address] [place] [address] Severe obesity (BMI >= 40) (CMS/HCC) Social [...] (HCC) documented in this encounter Care Teams Cook Restaurant Relationship Specialty Start Date End Date Cedrick Linton MD [address] [place] [phone] PCP - General Internal Medicine 06/06/16 documented as of this encounter
--- OUTSIDE RECORDS SUMMARY | 2025-07-07 09:17 | XMS_ITS | Encounter Summary ---
Author Organization [employer] Address [address] [facility] 7 [place] [address] Care Team Providers Care Dry Cell Sealer Name Role Phone Cedrick Lintno MD Primary Care Provider [phone]- [phone] Encounter Details Date Type Department Care Team (Late st Contact Info) Description 03/08/2025 Orders Only [facility] [address] [place] [address] Provider, MD [place] Social History Tobacco Use [...] Procedure Name Priority Date/Time Associated Diagnosis Comments CTA HEAD NECK W AND WO CONTRAST Routine 03/07/2025 2:56 PM EDT VASC US LOWER EXTREMITY VENOUS DUPLEX LEFT Routine 03/07/2025 1:57 PM EDT documented in this encounter Results * CTA Head Neck w/ and w/o Contrast (03/07/2025 2:56 PM EDT) Anatomical Region Laterality Modality Head, Neck Computed Tomogra phy us Historical Provider IMG CT PROCEDURES Final R esult * VASC US LOWER EXTREMITY VENOUS DUPLEX LEFT (03/07/2025 1:57 PM EDT) us Historical Provider CV VASCULAR PROCEDURES Fi nal Result documented in this encounter Visit Diagnoses Not on filedocumented in this encounter Additional Health Concerns Assessment Noted Time PHQ-9 Depression Total Score: 3 01/05/20 25 10:31 AM EDT documented as of this encounter Care Teams Dry Cell Sealer Relationship Specialty Start Date End Date Cedrick Linton MD [address] [place] [phone] PCP - General Internal Medicine 06/06/16 documented as of this encounter
--- OUTSIDE RECORDS SUMMARY | 2025-07-07 09:17 | XMS_ITS | Encounter Summary ---
Author Organization [email or web address] Address 75 [facility] 7 [place] [address] Care Team Providers Care Military Cook Name Role Phone Cedrick Linton MD Primary Care Provider Encounter Details Date Type Department Care Team ([facility] st Contact Info) Description 03/30/2024 Orders Only [facility] MED & PEDS [address] [place], [place] [phone] Cedrick Linton MD [address] [place] [address] Type 2 diabetes mellitus with hyperglycemia, without [...] (HCC) documented in this encounter Care Teams Military Cook Relationship Specialty Start Date End Date Cedrick Linton MD [address] [place] [id number] PCP - General Internal Medicine 06/06/16 documented as of this encounter
--- OUTSIDE RECORDS SUMMARY | 2025-07-07 09:17 | XMS_ITS | Encounter Summary ---
Author Organization [employer] Address [address] [facility] 7 [place] [address] Care Team Providers Care Beauty Operator Name Role Phone Cedrick Linton MD Primary Care Provider Encounter Details Date Type Department Care Team ([facility] st Contact Info) Description 08/17/2024 Orders Only [facility] CH[facility] MED & PEDS [address] [place], [place] [phone] Cedrick Linton MD [address] [place] [address] Social History Tobacco Use Types Packs/Day Years [...] on filedocumented in this encounter Care Teams Beauty Operator Relationship Specialty Start Date End Date Cedrick Linton MD [address] [place] [phone] PCP - General Internal Medicine 06/06/16 documented as of this encounter
[2025-07-07 14:30] LABS: Alanine Aminotransferase 31 U/L (0-40); Albumin Level 4.8 g/dL (3.5-5.0); Alkaline Phosphatase 35 U/L (39-117); Anion Gap 10 (12-20); Aspartate Amino Transferase 26 U/L (5-37); Blood Urea Nitrogen 19 mg/dL (9-16); Calcium 10.1 mg/dL (8.4-10.2); Carbon Dioxide 31 mmol/L (22-29); Chloride 106 mmol/L (96-108); Cholesterol 153 mg/dL (<200); Estimated Glomerular Filt Rate > 60; HDL Cholesterol 41 mg/dL (>40); Potassium 4.6 mmol/L (3.3-5.1); Sodium 142 mmol/L (135-145); Total Protein 7.7 g/dL (6.5-8.0); Triglycerides 124 mg/dL (<150)
[2025-07-08 05:16] LABS: HIV Num 1 0.05 S/CO (0.00-0.99)
== END 2025-07-07 08:42 | disposition home or self-care (01) ==
LOC: HO.CHCLDS 08:41
PROVIDERS: Visit Provider Internal Medicine
DX: E11.65 Type 2 diabetes mellitus with hyperglycemia (principal); Z11.4 Encounter for screening for human immunodeficiency virus [HIV]
CPT/HCPCS: 36415; 80053; 80061; 82570; 87389

== ENCOUNTER 2025-09-17 15:34 | Outpatient (REF) | payer SELFPAY ==
--- OUTSIDE RECORDS SUMMARY | 2025-09-17 14:45 | XMS_ITS | Encounter Summary ---
Author Organization [employer] Address [address] [place] [address] 7 [place] [address] Care Team Providers Care Histotechnologist Name Role Phone Cedrick Linton MD Primary Care Provider Encounter Details Date Type Department Care Team ([facility] st Contact Info) Description 09/17/2025 2:45 PM EST Office Visit [facility] MED & PEDS [address] [place], [place] [phone] Georgette Navarro, CAMPUS AIDE [address] [place], [place] [phone] Obesity, Class II, BMI 35-39.9 (Primary Dx); Type 2 diabetes mellitus without complication, without long-term current use of insulin (HCC) Social History Tobacco Use Types Packs/Day Years [...] housing situation today? I have [employer] green 01/04/[address] you [...] AM EDT documented as of this encounter Last Filed Vital Signs Vital Sign Reading Time Taken Comments Blood Pressure 110/70 09/17/2025 2:55 PM EST Pulse 72 09/17/2025 2:55 PM EST Temperature 36.7 C (98.1 F) 09/17/2025 2:55 PM EST Respiratory Rate 20 09/17/2025 2:55 PM EST Oxygen Saturation - - Inhaled Oxygen Concentration - - Weight 126 kg (278 lb) 09/17/2025 2:55 PM EST Height - - Body Mass Index 39.89 06/14/2025 2:59 PM EDT documented in this encounter Progress Notes * Georgette Navarro, DANIE - 09/17/2025 2:45 PM EST Subjective: Willie Strong is a 50 y.o. male with PMH hypertension, T2DM, and ALIREZA who presents for an office visit. HPI He was previously using Mounjaro, but coverage switched when he changed his health insurance. Recent discussion with pharmacy and insurance, and reports he needed updated weight and labs in order to proceed with medication. He reports feeling improved energy levels on medication, as well as therapeutic weight loss. Improved cardiovascular endurance. Blood sugar remains well controlled w/o hypoglycemic events. Wt Readings from Last 10 Encounters: 09/17/25 278 lb (126 kg) 06/14/25 265 lb (120 kg) 05/17/25 270 lb (122 kg) 03/11/25 284 lb (129 kg) 01/04/25 288 lb (131 kg) 07/02/24 277 lb (126 kg) 04/21/24 283 lb (128 kg) 02/12/24 309 lb (140 kg) 01/06/24 314 lb (142 kg) 09/09/23 322 lb (146 kg) Problem List[1] Review of Systems Constitutional: Negative for chills and fever. Cardiovascular: Negative for chest pain and palpitations. Gastrointestinal: Negative for diarrhea, nausea and vomiting. Psychiatric/Behavioral: Negative for suicidal ideas. Visit Vitals BP 110/70 (BP Location: Left arm, Patient Position: Sitting, BP Cuff Size: Adult) Pulse 72 Temp 98.1 ??F (36.7 ??C) (Oral) Resp 20 Wt 278 lb (126 kg) BMI 39.89 kg/m?? Smoking Status Former BSA 2.49 m?? Physical Exam Vitals reviewed. Constitutional: Appearance: Normal appearance. HENT: Head: Atraumatic. Right Ear: External ear normal. Left Ear: External ear normal. Cardiovascular: Rate and Rhythm: Normal rate and regular rhythm. Pulmonary: Effort: Pulmonary effort is normal. Breath sounds: Normal breath sounds. Neurological: Mental Status: He is alert and oriented to person, place, and time. Psychiatric: Mood and Affect: Mood normal. Behavior: Behavior normal. Problem List Items Addressed This Visit Endocrine and Metabolic Obesity, Class II, BMI 35-39.9 - Primary Current Assessment & Plan - Plan to resume treatment with tirzepatide, did note improvement with weight management - Continue with healthy lifestyle interventions Relevant Medications Tirzepatide (Mounjaro) 10 MG/0.5ML solution auto-injector Type 2 diabetes mellitus (HCC) Current Assessment & Plan - Resume Mounjaro - 10mg subcutaneous weekly. Reviewed med safety and SE - Denies episodes of hypoglycemia, due to repeat A1c. Well controlled when last checked. - Continue with lifestyle interventions Lab Results Component Value Date HGBA1C 6.2 (A) 03/11/2025 Relevant Medications Tirzepatide (Mounjaro) 10 MG/0.5ML solution auto-injector Other Relevant Orders Hemoglobin A1c Future Appointments Date Time Provider Department Center 10/20/2025 3:15 PM Cedrick Linton MD [facility] MED [facility] [1] Patient Active Problem List Diagnosis Hypertension Obesity, Class II, BMI 35-39.9 Type 2 diabetes mellitus (HCC) Obstructive sleep apnea documented in this encounter Miscellaneous Notes * Assessment & Plan Note - DANIE Membreno - 09/17/2025 5:13 PM ESTAssociated Problem(s): Type 2 diabetes mellitus (HCC) - Resume Mounjaro - 10mg subcutaneous weekly. Reviewed med safety and SE - Denies episodes of hypoglycemia, due to repeat A1c. Well controlled when last checked. - Continue with lifestyle interventions Lab Results Component Value Date HGBA1C 6.2 (A) 03/11/2025 * Assessment & Plan Note - DANIE Membreno - 09/17/2025 5:11 PM ESTAssociated Problem(s): Obesity, Class II, BMI 35-39.9 - Plan to resume treatment with tirzepatide, did note improvement with weight management - Continue with healthy lifestyle interventions documented in this encounter Plan of Treatment Upcoming Encounters Date Type Department Care Team (Late st Contact Info) Description 10/20/2025 3:15 PM EST Office Visit [facility] CHC MED & PEDS [address] [place] [address] Cedrick Linton MD [address] [place] [address] documented as of this encounter Goals Goal Patient Goal Type Associated Problems Recent Progress Patient-Stated? Author Help patients manage their type 2 diabetes Care Plan Help patients manage their type 2 diabetes No Anushka Currie, CARRIE Weekly blood pressure task Care Plan Weekly blood pressure task No Anushka Currie, CARRIE Help patients manage their type 2 diabetes Care Plan Help patients manage their type 2 diabetes No Anushka Currie RN Patient has chronic kidney disease Care Plan Patient has chronic kidney disease No Anushka Currie RN Weekly blood pressure task Care Plan Weekly blood pressure task No Anushka Currie RN Patient has chronic kidney disease Care Plan Patient has chronic kidney disease No Anushka Currie RN Weekly blood pressure task Care Plan Weekly blood pressure task No Georgette Navarro FNP Weekly blood pressure task Care Plan Weekly blood pressure task No Georgette Navarro FNP Patient has chronic kidney disease Care Plan Patient has chronic kidney disease No Georgette Navarro FNP Patient has chronic kidney disease Care Plan Patient has chronic kidney disease No Georgette Navarro FNP documented as of this encounter Procedures Procedure Name Priority Date/Time Associated Diagnosis Comments HEMOGLOBIN A1C Routine 09/17/2025 3:36 PM EST Type 2 diabetes mellitus without complication, without long-term current use of insulin (HCC) documented in this encounter Results * Hemoglobin A1c (09/17/2025 3:36 PM EST) Hemoglobin A1c 5.9 <6.0 % [facility] Comment:Hemoglobin A1C Refer ence Range Adults: 4.8 - 6.0 % Non diabetic: < 6.0 % Goal: < 7.0 %Additional Action Suggested: > 8.0 %Note: Hemoglobin A1c results are invalid for patients with abnormal amounts of HbF. Blood transfusions may impact the HbA1c concentration in the patient sample. Estimated Average Glucose 123 mg/dL [facility] Comment:eAG = Estimated ave rage glucose which is %A1C expressed asaverage glucose, using the formula of the Q0M-ZtlpsciLlmcfzr Glucose study (ADAG), Diabetes Care, Vol.31,#8,May. 2007 Blood Venous blood specimen / Unknown 09/17/2025 3:36 PM EST 09/17/2025 5:30 PM EST us Georgette [facility] BLOOD ORDERABLES Final Res ult [facility] [address] [place] [phone] documented in this encounter Visit Diagnoses Diagnosis Obesity, Class II, BMI 35-39.9- Primary Type 2 diabetes mellitus without complication, without long-term current use of insulin (HCC) documented in this encounter Additional Health Concerns Active Problems Noted Date Diagnosed Date Help patients manage their type 2 diabetes 09/16 Weekly blood pressure task 09/16/2025 Help patients manage their type 2 diabetes 09/16 Patient has chronic kidney disease 09/16/2025 Weekly blood pressure task 09/16/2025 Patient has chronic kidney disease 09/16/2025 Weekly blood pressure task 09/16/2025 Weekly blood pressure task 09/16/2025 Patient has chronic kidney disease 09/16/2025 Patient has chronic kidney disease 09/16/2025 Assessment Noted Time PHQ-9 Depression Total Score: 0 06/14/20 25 3:43 PM EDT documented as of this encounter Care Teams Histotechnologist Relationship Specialty Start Date End Date Cedrick Linton MD [address] [place] [id number] PCP - General Internal Medicine 06/06/16 documented as of this encounter
--- OUTSIDE RECORDS SUMMARY | 2025-09-17 20:23 | XMS_ITS | Encounter Summary ---
Author Organization [employer] [facility] Address [address] [place] [address] Care Team Providers Care Email Campaign Manager Name Role Phone Cedrick Linton MD Primary Care Provider Encounter Details Date Type Department Care Team (Late st Contact Info) Description 11/01/2022 Orders Only [facility] MED & PEDS [address] [place] [address] Mirian Astorga LPN Social History Tobacco Use [...] Description 10/20/2025 3:15 PM EST Office Visit [facility] MED & PEDS [address] [place] [address] Cedrick Linton MD [address] [place] [address] documented as of this encounter Visit Diagnoses Not on filedocumented in this encounter Care Teams Email Campaign Manager Relationship Specialty Start Date End Date Cedrick Linton MD [address] [place] [address] PCP - General Internal Medicine 06/06/16 documented as of this encounter
--- OUTSIDE RECORDS SUMMARY | 2025-09-17 20:23 | XMS_ITS | Encounter Summary ---
Author Organization [employer] Address [address] [facility] 7 [place] [address] Care Team Providers Care Chalk Machine Operator Name Role Phone Cedrick Linton MD Primary Care Provider Reason for Visit * Reason Onset Date Comments Medication Question 06/18/2024 Encounter Details Date Type Department Care Team (Late st Contact Info) Description 06/18/2024 Telephone [facility] [address] [place] [address] Cedrick Linton MD [address] [place] [address] Medication Question Social History Tobacco Use Types [...] the past 12 months, has t he [employer], [employer], oil or water [employer] threatened to shut off services in your [...] Description 10/20/2025 3:15 PM EST Office Visit [facility] MED & PEDS [address] [place] [address] Cedrick Linton MD [address] [place] [address] documented as of this encounter Visit Diagnoses Not on filedocumented in this encounter Care Teams Chalk Machine Operator Relationship Specialty Start Date End Date Cedrick Linton MD [address] [place] [address] PCP - General Internal Medicine 06/06/16 documented as of this encounter
--- OUTSIDE RECORDS SUMMARY | 2025-09-17 20:23 | XMS_ITS | Encounter Summary ---
Author Organization [employer] Address 75 [facility] 7 [place] [address] Care Team Providers Care Electronic Technologist Name Role Phone Cedrick Linton MD Primary Care Provider Encounter Details Date Type Department Care Team ([facility] st Contact Info) Description 05/18/2024 Orders Only [facility] CH[facility] MED & PEDS [address] [place], [place] [phone] Cedrick Linton MD [address] [place] [address] Type 2 diabetes mellitus with hyperglycemia, without [...] 3:15 PM EST Office Visit [facility] MED & PEDS [address] [place] [address] Cedrick Linton MD [address] [place] [address] documented as of this encounter Visit Diagnoses Diagnosis Type 2 diabetes mellitus with hyperglycemia, without long-term current use of insulin (HCC)- Primary Severe obesity (BMI >= 40) (CMS/HCC) (HCC) documented in this encounter Care Teams Electronic Technologist Relationship Specialty Start Date End Date Cedrick Linton MD [address] [place] [address] PCP - General Internal Medicine 06/06/16 documented as of this encounter
--- OUTSIDE RECORDS SUMMARY | 2025-09-17 20:23 | XMS_ITS | Encounter Summary ---
Author Organization [employer] Address [address] [place] [address] 7 [place] [address] Care Team Providers Care Shellfish Processing Machine Tender Name Role Phone Cedrick Linton MD Primary Care Provider [phone] Reason for Visit * Reason Comments Med Refill Encounter Details Date Type Department Care Team ([facility] Contact Info) Description 06/24/2024 Refill [facility] CHC MED & PEDS [address] [place] [address] Cedrick Linton MD [address] [place] [address] Severe obesity (BMI >= 40) (CMS/HCC) Social [...] 3:15 PM EST Office Visit [facility] MED & PEDS [address] [place] [address] Cedrick Linton MD [address] [place] [address] documented as of this encounter Visit Diagnoses Diagnosis Severe obesity (BMI >= 40) (CMS/HCC) (HCC) documented in this encounter Care Teams Shellfish Processing Machine Tender Relationship Specialty Start Date End Date Cedrick Linton MD [address] [place] [address] PCP - General Internal Medicine 06/06/16 documented as of this encounter
--- OUTSIDE RECORDS SUMMARY | 2025-09-17 20:23 | XMS_ITS | Encounter Summary ---
Author Organization [employer] Address 75 [facility] 7 [place] [address] Care Team Providers Care Salesperson Household Appliances Name Role Phone Cedrick Linton MD Primary Care Provider [phone] Encounter Details Date Type Department Care Team (Latest Contact Info) Description 09/17/2025 Travel Social History Tobacco Use Types Packs/Day Years Used Date Smoking Tobacco: Former Cigarettes 1 1 - 2013 Smokeless Tobacco: Never Alcohol [...] Upcoming Encounters Date Type Department Care Team ([facility] st Contact Info) Description 10/20/2025 3:15 PM EST Office Visit [facility] CHC MED & PEDS [address] [place] [address] Cedrick Linton MD [address] [place] [address] documented as of this encounter Goals Goal Patient Goal Type Associated Problems Recent Progress Patient-Stated? Author Help patients manage their type 2 diabetes Care Plan Help patients manage their type 2 diabetes No Anushka Currie RN Weekly blood pressure task Care Plan Weekly blood pressure task No Anushka Currie RN Help patients manage their type 2 diabetes [...] Navarro FNP documented as of this encounter Visit Diagnoses Not on filedocumented in this encounter Additional Health Concerns Active [...] documented as of this encounter Care Teams Salesperson Household Appliances Relationship Specialty Start Date End Date Cedrick Linton MD [address] [place] [id number] PCP - General Internal Medicine 06/06/16 documented as of this encounter
--- OUTSIDE RECORDS SUMMARY | 2025-09-17 20:23 | XMS_ITS | Encounter Summary ---
Author Organization [employer] Address 75 [facility] 7t [place] [address] Care Team Providers Care Director Data Architecture Name Role Phone Cedrick Linton MD Primary Care Provider [phone] Encounter Details Date Type Department Care Team (Late st Contact Info) Description 09/16/[address] [facility] [address] [place], [place] [phone] Anushka Currie, RN [address] [place] [address] Social History Tobacco Use Types Packs/Day Years Used Date Smoking Tobacco: Former Cigarettes 1 15 - 2013 Smokeless Tobacco: Never Alcohol Use [...] encounter Miscellaneous Notes * Telephone Encounter - Anushka Currie RN - 09/16/2025 1:22 PM EST Pt presented to the frontend engineer at [facility] today, requesting appointment. Brought pt into room 4 for discussion. Pt was on Mounjaro but had to stop due to insurance concerns. About a month ago, pt was able to clear up his insurance concerns and restarted Mounjaro. Pt states insurance asking for a followup appointment for progress, weight, and possible labs if needed. No available appointment with PCP and was given appointment tomorrow with [facility] provider at 2:45 for exam and follow up. Pt understandsand agrees with plan. Appointment reminder given. documented in this encounter Plan of Treatment Upcoming Encounters Date Type Department Care Team ([facility] st Contact Info) Description 10/20/2025 3:15 PM EST Office Visit [facility] MED & PEDS [address] [place] [address] Cedrick Linton MD [address] [place] [address] documented as of this encounter Goals Goal Patient Goal Type Associated Problems Recent Progress Patient-Stated? Author Help patients manage their type 2 diabetes Care Plan Help patients manage their type 2 diabetes Anushka Ireland RN Weekly blood pressure task Care Plan Weekly blood pressure task No Jelley, Anushka, RN Help patients manage their type 2 [...] Care Plan Weekly blood pressure task No Phalen Georgette, EMG TECHNICIAN Weekly blood pressure task Care Plan Weekly blood pressure task No Phalen Georgette, EMG TECHNICIAN Patient has chronic kidney disease Care Plan Patient has chronic kidney disease No Phalen Georgette, EMG TECHNICIAN Patient has chronic kidney disease Care Plan Patient has chronic kidney disease No Phalen Georgette, EMG TECHNICIAN documented as of this encounter Visit Diagnoses [...] documented as of this encounter Care Teams Director Data Architecture Relationship Specialty Start Date End Date Cedrick Linton MD [address] [place] [id number] PCP - General Internal Medicine 06/06/16 documented as of this encounter
--- OUTSIDE RECORDS SUMMARY | 2025-09-17 20:23 | XMS_ITS | Clinical Summary ---
Author Organization [facility] Address [address] [place] [address] Phone Care Team Providers Care Drug Abuse Resistance Education Officer Name Role Phone Cedrick Linton MD Primary Care Provider +1 [phone] Allergies Active Allergy Reactions Criticality Noted Date Comments Shrimp 03/07/2025 Medical History Medical History Date Comments Pneumonia Cardiac arrest ([facility] V24, [facility] V28) 2015 TIA (transient ischemic attack) History of transfusion Hyperlipemia Social History Tobacco Use Types Packs/Day Years Used Date Smoking Tobacco: Former Cigarettes 1.5 Q uit: 02/09/2010 Smokeless Tobacco: Never Alcohol Use Standard Drinks/Week Comments Not Currently 0 (1 standard drink = 0.6 oz pur e alcohol) Sex and Gender Information Value Date Recorded Sex Assigned at Not on file Legal Sex Male 12:52 AM EST Gender Identity Not on file Sexual Orientation Not on file Last Filed Vital Signs Vital Sign Reading [...] Ratio (uACR) 03/07/2025 COVID-19 Vaccine (1 - 2024-2 6 season) 2025 Influenza Vaccine (#1) 2025 9, 09/19/2018 Diabetes: Blood Sugar Contro l Test (HGBA1C) 07/06/2025 01/04/2025 RSV Immunization Adult Patients (1 - Risk 50-74 years 1-dose series) 2025 Zoster Vaccines (1 of 2) 2025 Diabetes: Annual GFR (Glomerular Filtration Rate) 03/07/2026 03/07/2025 Hypertension/CHF/CAD Annual BMP Blood Test 03/07/2026 03/07/2025 Cholesterol Screening (Lipid Panel) 07/02/2029 07/02/2024 DTaP,Tdap,and Td Vaccines (2 - Td or Tdap) 07/07/2029 07/07/2019 Hepatitis C Screening Completed 07/02/2024 Pneumococcal Vaccine: 50+ Years Completed 07/02/2024 HIB Vaccines Aged Out [...] mmol/L LAB CHEMISTRY METHOD 03/07/2025 9:44 PM [facility] Potassium 3.7 3.5 - 5.5 mmol/L LAB CHEMISTRY METHOD 03/07/2025 9:44 PM [facility] Chloride 104 96 - 110 mmol/L LAB CHEMISTRY METHOD 03/07/2025 9:44 PM [facility] CO2 28 21 - 32 mmol/L LAB CHEMISTRY METHOD 03/07/2025 9:44 PM [facility] Anion Gap 4 3 - 11 LAB CHEMISTRY METHOD 03/07/2025 9:44 PM [facility] Glucose 165(H) 70 - 100 mg/dL LAB CHEMISTRY METHOD 03/07/2025 9:44 PM [facility] BUN 20 5 - 25 mg/dL LAB CHEMISTRY METHOD 03/07/2025 9:44 PM [facility] Creatinine 1.08 0.70 - 1.30 mg/dL LAB CHEMISTRY METHOD 03/07/2025 9:44 PM [facility] eGFR 84 >=60 mL/min/1. 73m2 LAB CHEMISTRY METHOD 03/07/2025 9:44 PM [facility] Comment:Calculation based on the Chronic Kidney Disease Epidemiology Collaboration (CKD-EPI) equation refit without adjustment for race. BUN/Creatinine Ratio 18.5 LAB CHEMISTRY METHOD 03/07/2025 9:44 PM [facility] Calcium 9.5 8.5 - 10.5 mg/dL LAB CHEMISTRY METHOD 03/07/2025 9:44 PM [facility] Blood Venous blood specimen / Unknown Venipuncture / Unknown 03/07/2025 8:32 PM EDT 03/07/2025 9:18 PM EDT us Tennille Handy DO LAB BLOOD ORDERABLES Ary l Result [facility] [address] [place] [address], from Last 3 Months or Most Recently Relevant to Health Maintenance Insurance MEDICAID - [place] Advance Directives Documents on File Type Date Recorded Patient Wide Load Escort Expl anation Health Care Decision (hx) 09/03/2023 [...] (hx) 07/23/2017 AD LITTLE DIRECTIVE Care Teams Drug Abuse Resistance Education Officer Relationship Specialty Start Date End Date Cedrick Linton MD [address] [place] [address] PCP - General Internal Medicine 08/07/16
--- OUTSIDE RECORDS SUMMARY | 2025-09-17 20:24 | XMS_ITS | Encounter Summary ---
Author Organization [employer] Address [address] [place] [address] Care Team Providers Care Glassware Maker Name Role Phone Cedrick Linton MD Primary Care Provider [phone]- [phone] Reason for Visit * Reason Onset Date Comments Med Refill 03/19/2025 Encounter Details Date Type Department Care Team ([facility] st Contact Info) Description 03/19/2025 Refill [facility] & PEDS [address] [place] [address] Cedrick Linton MD [address] [place] [address] Severe obesity (BMI >= 40) (CMS/HCC); Type [...] Description 10/20/2025 3:15 PM EST Office Visit [facility] [address] [place] [address] Cedrick Linton MD [address] [place] [address] documented as of this encounter Visit Diagnoses Diagnosis Severe obesity (BMI >= 40) (CMS/HCC) ([facility]) Type 2 diabetes mellitus with hyperglycemia, without long-term current use of insulin ([facility]) documented in this encounter Additional Health Concerns Assessment Noted Time PHQ-9 Depression Total Score: 3 01/05/20 25 10:31 AM EDT documented as of this encounter Care Teams Glassware Maker Relationship Specialty Start Date End Date Cedrick Linton MD [address] [place] [address] PCP - General Internal Medicine 06/06/16 documented as of this encounter
--- OUTSIDE RECORDS SUMMARY | 2025-09-17 20:24 | XMS_ITS | Encounter Summary ---
Author Organization [employer] Address [address] [facility] 7 [place] [address] Care Team Providers Care Rubber Cutter Name Role Phone Cedrick Linton MD Primary Care Provider [phone]- [phone] Encounter Details Date Type Department Care Team (Late st Contact Info) Description 03/09/2025 Orders Only [facility] [address] [place] [address] Provider, MD [place] Social History Tobacco Use [...] Description 10/20/2025 3:15 PM EST Office Visit [facility] PEDS [address] [place] [address] Cedrick Linton MD [address] [place] [address] documented as of this encounter Procedures Procedure [...] documented as of this encounter Care Teams Rubber Cutter Relationship Specialty Start Date End Date Cedrick Linton MD [address] [place] [address] PCP - General Internal Medicine 06/06/16 documented as of this encounter
--- OUTSIDE RECORDS SUMMARY | 2025-09-17 20:24 | XMS_ITS | Encounter Summary ---
Author Organization [employer] Address [address] [facility] 7 [place] [address] Care Team Providers Care Director Of Property Management Name Role Phone Cedrick Linton MD Primary Care Provider [phone]- [phone] Encounter Details Date Type Department Care Team ([facility] st Contact Info) Description 02/16/2025 Orders Only [facility] MED & PEDS [address] [place], [place] [phone] Cedrick Linton MD [address] [place] [address] Social History Tobacco Use Types Packs/Day Years [...] Upcoming Encounters Date Type Department Care Team ([facility] st Contact Info) Description 10/20/2025 3:15 PM EST Office Visit [facility] MED & PEDS [address] [place] [address] Cedrick Linton MD [address] [place] [address] documented as of this encounter Visit Diagnoses Not on filedocumented in this encounter Additional Health Concerns Assessment Noted Time PHQ-9 Depression Total Score: 3 01/05/20 25 10:31 AM EDT documented as of this encounter Care Teams Director Of Property Management Relationship Specialty Start Date End Date Cedrick Linton MD [address] [place] [address] PCP - General Internal Medicine 06/06/16 documented as of this encounter
--- OUTSIDE RECORDS SUMMARY | 2025-09-17 20:24 | XMS_ITS | Encounter Summary ---
Author Organization [employer] Address [address] [place] [address] 7 [place] [address] Care Team Providers Care Acting Manager Name Role Phone Cedrick Linton MD Primary Care Provider Reason for Visit * Reason Onset Date Comments Med Refill 03/23/2025 Encounter Details Date Type Department Care Team (Late st Contact Info) Description 03/23/[address] [facility] [address] [place] [address] Cedrick Linton MD [address] [place] [address] Social History Tobacco Use Types Packs/Day Years [...] Upcoming Encounters Date Type Department Care Team ([facility] st Contact Info) Description 10/20/2025 3:15 PM EST Office Visit [facility] MED & PEDS [address] [place] [address] Cedrick Linton MD [address] [place] [address] documented as of this encounter Visit Diagnoses Not on filedocumented in this encounter Additional Health Concerns Assessment Noted Time PHQ-9 Depression Total Score: 3 01/05/20 25 10:31 AM EDT documented as of this encounter Care Teams Acting Manager Relationship Specialty Start Date End Date Cedrick Linton MD [address] [place] [address] PCP - General Internal Medicine 06/06/16 documented as of this encounter
--- OUTSIDE RECORDS SUMMARY | 2025-09-17 20:24 | XMS_ITS | Encounter Summary ---
Author Organization [employer] Address [address] [place] [address] 7 [place] [address] Care Team Providers Care Development Educator Name Role Phone Cedrick Linton MD Primary Care Provider Encounter Details Date Type Department Care Team ([facility] st Contact Info) Description 03/12/2025 Orders Only [facility] CH[facility] MED & PEDS [address] [place], [place] [phone] Cedrick Linton MD [address] [place] [address] Paresthesias (Primary Dx) Social History Tobacco Use [...] Description 10/20/2025 3:15 PM EST Office Visit [facility] MED [facility] PEDS [address] [place] [address] Cedrick Linton MD [address] [place] [address] documented as of this encounter Visit Diagnoses Diagnosis Paresthesias- Primary Disturbance of skin sensation documented in this encounter Additional Health Concerns Assessment Noted Time PHQ-9 Depression Total Score: 3 01/05/20 25 10:31 AM EDT documented as of this encounter Care Teams Development Educator Relationship Specialty Start Date End Date Cedrick Linton MD [address] [place] [address] PCP - General Internal Medicine 06/06/16 documented as of this encounter
--- OUTSIDE RECORDS SUMMARY | 2025-09-17 20:24 | XMS_ITS | Encounter Summary ---
Author Organization [employer] Address [address] [facility] 7 [place] [address] Care Team Providers Care Shark Biologist Name Role Phone Cedrick Linton MD Primary Care Provider [phone]- [phone] Encounter Details Date Type Department Care Team ([facility] st Contact Info) Description 01/22/2024 Orders Only [facility] MED & PEDS [address] [place], [place] [phone] Cedrick Linton MD [address] [place] [address] Type 2 diabetes mellitus with hyperglycemia, without [...] Description 10/20/2025 3:15 PM EST Office Visit [facility] MED & PEDS [address] [place] [address] Cedrick Linton MD [address] [place] [address] documented as of this encounter Procedures Procedure Name Priority Date/Time Associated Diagnosis Comments US EXTREMITY NONVASCULAR FITCH Routine 02/20/2024 1:15 PM EDT documented in this encounter Results * US EXTREMITY NONVASCULAR FITCH (02/20/2024 1:15 PM EDT) Anatomical Region Laterality Modality Abdomen Ultrasound 02/20/2024 1:15 PM EDT Narrative 02/29/2024 9:51 PM EDT [address] [address] Ultrasound Report Signed Patient: Willie Strong MR#: [id number] 10 : 1975 Acct:[id number] Age/Sex: 48 / M ADM Date: 02/20/24 Loc: HO.US Attending Dr: Len Vargas MD Ordering Physician: Len Vargas MD Date of Service: 02/20/24 Procedure(s): US extremity nonvascular fitch Accession Number(s): [id number] cc: Cedrick Linton MD; Len Vargas MD [...] MD in OV> 02/29/242146 DD/ 1315 TD/TT: Biology Laboratory Assistant: SS Procedure Note Donotuseinterpreter, Image - 03/03/2024 [place] [address] Ultrasound Report Signed Patient: Jony Strong#: [id number] 10 : 1975Acct:[id number] Age/Sex: 48 / MADM Date: 02/20/24 Loc: HO.US Attending Dr: Len Vargas MD Ordering Physician: Len Vargas MD Date of Service: 02/20/24 Procedure(s): US extremity nonvascular fitch Accession Number(s): [id number] cc: Cedrick Linton MD; Len Vargas MD [...] MD in OV> 02/29/242146 DD/ 1315 TD/TT: Biology Laboratory Assistant: L[facility] External Provider IMG US PROCEDURES Edited Result - Final documented in this encounter Visit Diagnoses Diagnosis Type 2 diabetes mellitus with hyperglycemia, without long-term current use of insulin (HCC)- Primary Severe obesity (BMI >= 40) (CMS/HCC) (HCC) documented in this encounter Care Teams Shark Biologist Relationship Specialty Start Date End Date Cedrick Linton MD [address] [place] [address] PCP - General Internal Medicine 06/06/16 documented as of this encounter
--- OUTSIDE RECORDS SUMMARY | 2025-09-17 20:24 | XMS_ITS | Encounter Summary ---
Author Organization [employer] Address [address] [facility] 7 [place] [address] Care Team Providers Care Billiard Table Repairer Name Role Phone Cedrick Linton MD Primary Care Provider [phone] Encounter Details Date Type Department Care Team ([facility] st Contact Info) Description 03/30/2024 Orders Only [facility] MED & PEDS [address] [place], [place] [phone] Cedrick Linton MD [address] [place] [address] Type 2 diabetes mellitus with hyperglycemia, without [...] Description 10/20/2025 3:15 PM EST Office Visit [facility] MED & PEDS [address] [place] [address] Cedrick Linton MD [address] [place] [address] documented as of this encounter Visit Diagnoses Diagnosis Type 2 diabetes mellitus with hyperglycemia, without long-term current use of insulin (HCC)- Primary Severe obesity (BMI >= 40) (CMS/HCC) (HCC) documented in this encounter Care Teams Billiard Table Repairer Relationship Specialty Start Date End Date Cedrick Linton MD [address] [place] [address] PCP - General Internal Medicine 06/06/16 documented as of this encounter
--- OUTSIDE RECORDS SUMMARY | 2025-09-17 20:24 | XMS_ITS | Encounter Summary ---
Author Organization [employer] Address [address] [place] [address] Care Team Providers Care Public Information Coordinator Name Role Phone Cedrick Linton MD Primary Care Provider [phone]- [phone] Reason for Visit * Reason Onset Date Comments Med Refill 02/15/2025 Encounter Details Date Type Department Care Team ([facility] st Contact Info) Description 02/15/2025 Refill [facility] MED & PEDS [address] [place] [address] Cedrick Linton MD [address] [place] [address] Severe obesity (BMI >= 40) (CMS/HCC); Type [...] 3:15 PM EST Office Visit [facility] MED & PEDS [address] [place] [address] Cedrick Linton MD [address] [place] [address] documented as of this encounter Visit Diagnoses Diagnosis Severe obesity (BMI >= 40) (CMS/HCC) ([facility]) Type 2 diabetes mellitus with hyperglycemia, without long-term current use of insulin ([facility]) documented in this encounter Additional Health Concerns Assessment Noted Time PHQ-9 Depression Total Score: 3 01/05/20 25 10:31 AM EDT documented as of this encounter Care Teams Public Information Coordinator Relationship Specialty Start Date End Date Cedrick Linton MD [address] [place] [address] PCP - General Internal Medicine 06/06/16 documented as of this encounter
--- OUTSIDE RECORDS SUMMARY | 2025-09-17 20:24 | XMS_ITS | Encounter Summary ---
Author Organization [employer] Address [address] [facility] 7 [place] [address] Care Team Providers Care Sign Maintenance Name Role Phone Cedrick Linton MD Primary Care Provider Encounter Details Date Type Department Care Team ([facility] st Contact Info) Description 08/17/2024 Orders Only [facility] MED & PEDS [address] [place], [place] [phone] Cedrick Linton MD [address] [place] [address] Social History Tobacco Use Types Packs/Day Years [...] 10/20/2025 3:15 PM EST Office Visit [facility] MED & PEDS [address] [place] [address] Cedrick Linton MD [address] [place] [address] documented as of this encounter Visit Diagnoses Not on filedocumented in this encounter Care Teams Sign Maintenance Relationship Specialty Start Date End Date Cedrick Linton MD [address] [place] [address] PCP - General Internal Medicine 06/06/16 documented as of this encounter
--- OUTSIDE RECORDS SUMMARY | 2025-09-17 20:24 | XMS_ITS | Clinical Summary ---
Author Organization [employer] Address [address] [place] [address] [place] [address] Care Team Providers Care Electromechanical Assembly Technician Name Role Phone Cedrick Linton MD Primary Care Provider Allergies Active Allergy Reactions Criticality Noted Date Comments Shellfish Allergy 06/15/2025 Medications metFORMIN (Glucophage) 500 MG tablet Take 1 tablet (500 mg) by mouth with breakfast and with evening meal. 180 tablet 3 025 Active b complex vitamins capsuleIndicatio ns:Paresthesias Take 1 capsule by mouth Once per day. 30 capsule 11 025 2025 Active sildenafil (Viagra) 50 MG tabletIndication s:Erectile dysfunction due to diseases classified elsewhere TAKE 1 TABLET 1 HOUR BEFORE SEXUAL RELATIONS ONCE DAILY NEEDED. 8 tablet 1 025 Active Vitamins-Lipotro pics (B Complex Formula 1, Lipotrop,) tablet Take 1 tablet by mouth Once per day. 025 Active lisinopril-hydro CHLOROthiazide 20-12.5 MG tablet TAKE ONE TABLET DAILY 90 tablet 1 025 Active atorvastatin (Lipitor) 40 MG tablet TAKE ONE TABLET EVERY MORNING 90 tablet 1 025 Active metoprolol succinate XL (Toprol-XL) 25 MG 24 hr tablet TAKE ONE TABLET BY MOUTH EVERY DAY 90 tablet 3 09/01/20 25 2:32 PM EST 025 Active Tirzepatide (Mounjaro) 10 MG/0.5ML solution auto-injectorInd ications:Type 2 diabetes mellitus without complication, without long-term current use of insulin (HCC) Inject 10 mg under the skin 1 (one) time per week. 2 mL 2 025 Active metoprolol succinate XL (Toprol-XL) 25 MG 24 hr tablet TAKE ONE TABLET BY MOUTH DAILY 90 tablet 3 024 2024 Discontinued Tirzepatide (Mounjaro) 12.5 MG/0.5ML solution auto-injectorInd ications:Type 2 diabetes mellitus with hyperglycemia, without long-term current use of insulin (HCC),Obesity (BMI 30-39.9) Inject 12.5 mg under the skin 1 (one) time per week. 2 mL 2 025 2024 Discontinued(T herapy completed) Mounjaro 10 MG/0.5ML solution auto-injectorInd ications:Type 2 diabetes mellitus without complications (HCC) INJECT ONE PEN (=10MG) SUBCUTANEOUSLY ONCE A WEEK DIRECTED 2 mL 1 025 2024 Discontinued(R eorder (will not trigger notification to Pharmacy)) Active Problems Problem Noted Date Diagnosed Date Obstructive sleep apnea 06/14/2025 Obesity, Class II, BMI 35-39.9 02/02/2021 Assessment & Plan (09/17/2025 5:12 PM EST): - Plan to resume treatment with tirzepatide, did note improvement with weight management - Continue with healthy lifestyle interventions Type 2 diabetes mellitus 12/19/2015 Assessment & Plan (09/17/2025 5:13 PM EST): - Resume Mounjaro - 10mg subcutaneous weekly. Reviewed med safety and SE - Denies episodes of hypoglycemia, due to repeat A1c. Well controlled when last checked. - Continue with lifestyle interventions Lab Results Component Value Date HGBA1C 6.2 (A) 03/11/2025 Assessment & Plan (05/17/2025 9:43 AM EDT): Tolerating mounjaro, will increase dose to 10mg, continue low carb/no sugar diet, exercise as tolerated, follow up as scheduled Hypertension 03/31/2013 Encounters Date Type Department Care Team Description 09/17/2025 2:45 PM EST Office Visit [facility] [address] [place], [place] [phone] Georgette Navarro FNP Obesity, Class II, BMI 35-39.9 (Primary Dx); Type 2 diabetes mellitus without complication, without long-term current use of insulin (HCC) 09/17/2025 Travel 09/16/2025 Telephone [facility] [address] [place] [address] Anushka Currie RN 08/27/2025 Refill [facility] [address] [place] [address] Cedrick Linton MD 07/23/2025 Refill [facility] [address] [place], [place] [phone] Kervin Soria MD Type 2 diabetes mellitus without complications ([facility]) 07/08/2025 Results Follow-Up [facility] [address] [place] [address] Pricilla Mooney RN POCT Glucose, Lipid Panel, Standard, Albumin, Random Urine W/Creatinine, Comprehensive Metabolic Panel 07/05/2025 Telephone [facility] [address] [place], [place] [phone] Cedrick Linton MD reschedule appt 06/21/2025 Refill [facility] [address] [place], [place] [phone] Cedrick Linton MD from Last 3 Months Immunizations Immunization Administration [...] your housing situation today? I have carmen rgeen 01/04/[address] you li [...] 20 09/17/2025 2:55 PM EST Oxygen Saturation 98% 03/11/2025 9:29 AM EDT Inhaled Oxygen Concentration - - Weight 126 kg (278 lb) 09/17/2025 2:55 PM EST Height 177.8 cm (5' 10 ) 06/14/2025 2:59 PM EDT Body Mass Index 39.89 06/14/2025 2:59 PM EDT Plan of Treatment Upcoming Encounters Date Type Department Care Team (Late st Contact Info) Description 10/20/2025 3:15 PM EST Office Visit [facility] [address] [place], [place] [phone] Cedrick Linton MD [address] [facility] ALISON Garcia [address] Health Maintenance Due Date Last Done Comments CT Colonography 1975 Colonoscopy 1975 Colorectal Cancer Screening 1975 FIT DNA/Cologuard 1975 FIT 1975 FOBT 1975 Sigmoidoscopy 1975 Disability Screening 1975 Eye Exam 1985 Family Planning (PISQ) 1990 Hepatitis B Vaccines (1 of 3 - 19+ 3-dose series) 1994 COVID-19 Vaccine ( - 2024- season) 2025 Influenza Vaccine (#1) 2025 07/07/2019, 2017 Zoster Vaccines (1 of 2) 2025 Diabetes: Foot Exam 01/04/2026 01/04/2025 Diabetes: Hemoglobin A1C 03/18/2026 025, 03/11/2025, 01/04/2025, Additional history exists Alcohol/Substance Use Screening 06/14/2026 06/14/2025 Depression Screening 06/14/2026 06/14/2025, 06/14/20 25 SDOH Screening 06/14/2026 06/14/2025 Diabetes: Urine Protein Screening 07/07/2026 07/07/2025, 07/02/2024, 08/04/2021 Lipid Panel 07/07/2026 07/07/2025, 06/08, 08/04/2021, Additional history exists Tobacco Screening 09/17/2026 09/17/2025 DTaP/Tdap/Td Vaccines (2 - Td or Tdap) 07/07/2029 07/07/2019 RSV Patients and Patients Aged 60 years or older (1 - 1-dose 75+ series) 2050 Hepatitis C Screening Completed 07/02/2024 Pneumococcal Vaccine: 50+ Years Completed 07/02/2024 HIV Screening Completed 07/07/2025 HIB Vaccines Aged Out No longer eligi [...] on patient's age to complete this topic Goals Goal Patient Goal Type Associated Problems [...] chronic kidney disease No Georgette Navarro FNP Procedures Procedure Name Priority Date/Time Associated Diagnosis Comments HEMOGLOBIN A1C Routine 09/17/2025 3:36 PM EST Type 2 diabetes mellitus without complication, without long-term current use of insulin (HCC) HIV 1/2 ANTIGEN/ANTIBODY, FOURTH GENERATION W/RFL Routine 07/07/2025 8:44 AM EDT Type 2 diabetes mellitus with hyperglycemia, without long-term current use of insulin (HCC) COMPREHENSIVE METABOLIC PANEL Routine 07/07/2025 8:44 AM EDT Type 2 diabetes mellitus with hyperglycemia, without long-term current use of insulin (HCC) ALBUMIN, RANDOM URINE W/CREATININE Routine 07/07/2025 8:44 AM EDT Type 2 diabetes mellitus with hyperglycemia, without long-term current use of insulin (HCC) LIPID PANEL, STANDARD Routine 07/07/2025 8:44 AM EDT Type 2 diabetes mellitus with hyperglycemia, without long-term current use of insulin (HCC) HEPATITIS C AB W/REFL TO HCV RNA, QN, PCR Routine 07/02/2024 10:17 AM EDT Type 2 diabetes mellitus with hyperglycemia, without long-term current use of insulin (CMS/HCC) from Last 3 Months or Most Recently Relevant to Health Maintenance Results * Hemoglobin A1c (09/17/2025 3:36 PM EST) Hemoglobin A1c 5.9 <6.0 % [facility] Comment:Hemoglobin A1C Refer ence Range Adults: 4.8 - 6.0 % Non diabetic: < 6.0 % Goal: < 7.0 %Additional Action Suggested: > 8.0 %Note: Hemoglobin A1c results are invalid for patients with abnormal amounts of HbF. Blood transfusions may impact the HbA1c concentration in the patient sample. Estimated Average Glucose 123 mg/dL [facility] Comment:eAG = Estimated ave rage glucose which is %A1C expressed asaverage glucose, using the formula of the P0Q-ApojpyvWhicqgj Glucose study (ADAG), Diabetes Care, Vol.31,#8,May. 2007 Blood Venous blood specimen / Unknown 09/17/2025 3:36 PM EST 09/17/2025 5:30 PM EST us Georgette Navarro MEDICAL RECORDS COORDINATOR LAB BLOOD ORDERABLES Final Res ult [facility] [address] [place] [phone] * Albumin, Random Urine W/Creatinine (07/07/2025 8:44 AM EDT) Creatinine, Urine 138.33 mg/dL [facility] Microalbumin Urine <5.0 mg/L [facility] Microalbum Creatinine Ratio Ur TNP <30 ug/mg cr [facility] Comment:Unable to calculate albumin/creatinine ratio due to lowmicroalbumin or creatinine result. Urine (Urine, Random) 07/07/2025 8:44 AM EDT 07/07/2025 2:02 PM EDT us Cedrick Linton MD LAB URINE ORDERABLES Final Result Performing Organization Address [facility]/ZIP Co de Phone Number [facility] [address] [place] [phone] * HIV-1/2 Antigen and Antibodies, Fourth Generation, with Reflexes (07/07/2025 8:44 AM EDT) HIV AB/AG Nonreactive Nonreactive [facility] Comment:HIV-1 p24 Ag and/or HIV-1/HIV-2 Ab not detected.A test result that is nonreactive does not exclude thepossibility of exposure to or infection with HIV-1 and/orHIV-2. Nonreactive results in this assay for individualswith prior exposure to HIV-1 and/or HIV-2 may be due toantigen and antibody levels that are below the limit ofdetection of this assay.The [employer] HIV Ag/Ab Combo assay result andsupplemental assay results should be interpreted inconjunction with the patient's clinical presentation,history and other laboratory results. If the results areinconsistent with clinical evidence, additional testing issuggested to confirm the result. Blood Venous blood specimen / Unknown 07/07/2025 8:44 AM EDT 07/07/2025 1:58 PM EDT us Cedrick Linton MD LAB BLOOD ORDERABLES Final Result Performing Organization Address [facility]/ZIP Co de Phone Number [facility] [address] [place] [phone] * Lipid Panel, Standard (07/07/2025 8:44 AM EDT) Triglycerides 124 <150 mg/dL [facility] Comment:Desirable Triglyceri de: less than 150 mg/dLBorderline High Triglyceride 150-199 mg/dLHigh Triglyceride: 200-499 mg/dLVery High Triglyceride: greater than or equal to 5OO mg/dL Cholesterol 153 <200 mg/dL [facility] Comment:Desirable Cholestero l: less than 200 mg/dLBorderline High Cholesterol: 200-239 mg/dLHigh Cholesterol: greater than 239 mg/dL LDL Cholesterol Calculated 88 <100 mg/dL [facility] Comment:Desirable LDL: less than 100 mg/dLNear Optimal/Above Optimal LDL: 110- 129 mg/dLBorderline High LDL: 130-159 mg/dLHigh LDL: 160-189 mg/dLVery High LDL: greater than or equal to 190 mg/dL HDL Cholesterol 41 >40 mg/dL [facility] Comment:Desirable HDL: great er than 40 mg/dL Note: This HDL assay may give artificially low results in patients with liver disease. Blood Venous blood specimen / Unknown 07/07/2025 8:44 AM EDT 07/07/2025 1:58 PM EDT us Cedrick Linton MD LAB BLOOD ORDERABLES Final Result [facility] [address] [place], [place] [phone] * (ABNORMAL) Comprehensive Metabolic Panel (07/07/2025 8:44 AM EDT) Sodium 142 135 - 145 mmol/L [facility] Potassium 4.6 3.3 - 5.1 mmol/L [facility] Chloride 106 96 - 108 mmol/L [facility] Carbon Dioxide 31(H) 22 - 29 mmol/L [facility] Anion Gap 10(L) 12 - 20 [facility] Urea Nitrogen (BUN) 19(H) 9 - 16 mg/dL [facility] Creatinine, Serum 1.03 0.5 - 1.4 mg/dL [facility] Estimated Glomerular Filt Rate >60 [facility] Comment:Chronic Kidney Disea se: Estimated GFR < 60 mL/min/1.18d0Vlmcpf Kidney Disease: Estimated GFR < 15 mL/min/1.73m2 Glucose 101 60 - 115 mg/dL [facility] Calcium 10.1 8.4 - 10.2 mg/dL [facility] Bilirubin, Total 1.4(H) 0.0 - 1.0 mg/dL [facility] Aspartate Amino Transferase 26 5 - 37 U/L [facility] Alanine Aminotransferase 31 0 - 40 U/L [facility] Total Protein 7.7 6.5 - 8.0 g/dL [facility] Albumin Level 4.8 3.5 - 5.0 g/dL [facility] Alkaline Phosphatase 35(L) 39 - 117 U/L [facility] Blood Venous blood specimen / Unknown 07/07/2025 8:44 AM EDT 07/07/2025 1:58 PM EDT us Cedrick Linton MD LAB BLOOD ORDERABLES Final Result Performing Organization Address [facility] Co de Phone Number [facility] [address] [place] [phone] * Hepatitis C Antibody with Reflex to HCV, RNA, Quantitative, Real-Time PCR (07/02/2024 10:17 AM EDT) Hepatitis C Antibody Nonreactive Nonreactive [facility] Comment:Antibodies to HCV no t detected; does not exclude early acuteHCV infection. Blood Venous blood specimen / Unknown 07/02/2024 10:17 AM EDT 07/02/2024 2:13 PM EDT us Cedrick Linton MD LAB BLOOD ORDERABLES Final Result Performing Organization Address [facility]/ZIP Co de Phone Number [facility] [address] [place] [phone] from Last 3 Months or Most Recently Relevant to Health Maintenance Additional Health Concerns Active Problems Noted Date [...] 09/16/2025 Patient has chronic kidney disease 09/16/2025 Insurance Care Teams Electromechanical Assembly Technician Relationship Specialty Start Date End Date Cedrick Linton MD [address] [place] [phone] PCP - General Internal Medicine 06/06/16
--- OUTSIDE RECORDS SUMMARY | 2025-09-17 20:24 | XMS_ITS | Encounter Summary ---
Author Organization [employer] Address [address] [place] [address] 7 [place] [address] Care Team Providers Care Phone Counselor Name Role Phone Cedrick Linton MD Primary Care Provider [phone] Encounter Details Date Type Department Care Team ([facility] st Contact Info) Description 02/01/2025 Orders Only [facility] [address] [place], [place] [phone] Cedrick Linton MD [address] [place] [address] Severe obesity (BMI >= 40) (CMS/HCC) (Primary [...] 3:15 PM EST Office Visit [facility] [address] [place] [address] Cedrick Linton MD [address] [place] [address] documented as of this encounter Visit Diagnoses Diagnosis Severe obesity (BMI >= 40) (CMS/HCC) (HCC)- Primary Type 2 diabetes mellitus with hyperglycemia, without long-term current use of insulin ([facility]) documented in this encounter Additional Health Concerns Assessment Noted Time PHQ-9 Depression Total Score: 3 01/05/20 25 10:31 AM EDT documented as of this encounter Care Teams Phone Counselor Relationship Specialty Start Date End Date Cedrick Linton MD [address] [place] [address] PCP - General Internal Medicine 06/06/16 documented as of this encounter
--- OUTSIDE RECORDS SUMMARY | 2025-09-17 20:24 | XMS_ITS | Encounter Summary ---
Author Organization [employer] Address [address] [place] [phone] Care Team Providers Care Lathe Mechanic Name Role Phone Cedrick Linton MD Primary Care Provider Reason for Visit * Reason Comments Med Refill Encounter Details Date Type Department Care Team ([facility] Contact Info) Description 12/31/2024 Refill [facility] [address] [place] [address] Cedrick Linton MD [address] [place] [address] Social History Tobacco Use Types Packs/Day Years [...] Upcoming Encounters Date Type Department Care Team ([facility] st Contact Info) Description 10/20/2025 3:15 PM EST Office Visit [facility] [address] [place] [address] Cedrick Linton MD [address] [place] [address] documented as of this encounter Visit Diagnoses Not on filedocumented in this encounter Care Teams Lathe Mechanic Relationship Specialty Start Date End Date Cedrick Linton MD [address] [place] [address] PCP - General Internal Medicine 06/06/16 documented as of this encounter
--- OUTSIDE RECORDS SUMMARY | 2025-09-17 20:24 | XMS_ITS | Encounter Summary ---
Author Organization [employer] Address [address] [facility] 7 [place] [address] Care Team Providers Care Associate Creative Director Name Role Phone Cedrick Linton MD Primary Care Provider [phone]- [phone] Encounter Details Date Type Department Care Team (Late st Contact Info) Description 03/08/2025 Orders Only [facility] [address] [place] [address] Provider, MD [place] Social History Tobacco Use [...] Description 10/20/2025 3:15 PM EST Office Visit [facility] [address] [place] [address] Cedrick Linton MD [address] [place] [address] documented as of this encounter Procedures Procedure Name Priority Date/Time Associated Diagnosis Comments CTA HEAD NECK W AND WO CONTRAST Routine 03/07/2025 2:56 PM EDT VASC US LOWER EXTREMITY VENOUS DUPLEX LEFT Routine 03/07/2025 1:57 PM EDT documented in this encounter Results * CTA Head Neck w/ and w/o Contrast (03/07/2025 2:56 PM EDT) Anatomical Region Laterality Modality Head, Neck Computed Tomogra phy Historical Provider IMCarl CT PROCEDURES Final R esult * VASC US LOWER EXTREMITY VENOUS DUPLEX LEFT (03/07/2025 1:57 PM EDT) Historical Provider CV VASCULAR PROCEDURES Fi nal Result documented in this encounter Visit Diagnoses Not on filedocumented in this encounter Additional Health Concerns Assessment Noted Time PHQ-9 Depression Total Score: 3 01/05/20 25 10:31 AM EDT documented as of this encounter Care Teams Associate Creative Director Relationship Specialty Start Date End Date Cedrick Linton MD [address] [place] [address] PCP - General Internal Medicine 06/06/16 documented as of this encounter
== END 2025-09-17 15:35 | disposition home or self-care (01) ==
LOC: HO.CHCLDS 15:34
PROVIDERS: Visit Provider Registered Nurse
DX: E11.9 Type 2 diabetes mellitus without complications (principal)
CPT/HCPCS: 36415; 83036